=== PATIENT | female | born 1980 | race Caucasian/White ===

== ENCOUNTER → 2017-09-07 09:55 | Outpatient (CLI) | payer OTHER, SELFPAY ==
[2017-09-07 10:55] LABS: Influenza A and B by PCR Rapid Negative (Negative)
== END ==
PROVIDERS: Family Provider Family Medicine; PCP Family Medicine; Visit Provider Physician Assistant
DX: J02.9 Acute pharyngitis, unspecified (principal); J06.9 Acute upper respiratory infection, unspecified
CPT/HCPCS: 87400

== ENCOUNTER → 2017-11-05 12:18 | Outpatient (CLI) | payer OTHER, SELFPAY ==
[2017-11-05 13:26] LABS: TSH w/ Reflex to FT4 5.04 uIU/mL (0.47-4.68)
[2017-11-05 19:47] LABS: Free T4, Direct Thyroxine 0.67 ng/dL (0.78-2.19)
== END ==
PROVIDERS: Family Provider Family Medicine; PCP Family Medicine; Visit Provider Family Medicine
DX: E03.9 Hypothyroidism, unspecified (principal)
CPT/HCPCS: 36415; 84439; 84443

== ENCOUNTER → 2018-03-17 12:40 | Outpatient (CLI) | payer OTHER, SELFPAY ==
--- NOTE | 2018-03-17 12:41 | DI.MG.S_ITS ---
BILATERAL DIGITAL DIAGNOSTIC MAMMOGRAM 3D/2D: 03/17/2018 CLINICAL: Right breast pain. Baseline exam. No prior exams were available for comparison. The tissue of both breasts is extremely dense, which lowers the sensitivity of mammography. There are a grouped punctate calcifications in the left breast central to the nipple middle depth. No other significant masses, calcifications, or other findings are seen in either breast. IMPRESSION: INCOMPLETE: NEEDS ADDITIONAL IMAGING EVALUATION The grouped punctate calcifications in the left breast are probably benign. A follow-up mammogram in 6 months is recommended. There is no mammographic abnormality seen in the right breast to correspond with the pain, however, targeted ultrasound of the right breast is recommended and will be performed immediately following this exam. This exam was interpreted at Station ID: [id number]. NOTE: For mammograms, a report in lay terms will be sent to the patient. Approximately 15% of breast malignancies will not be visualized mammographically. In the management of a palpable breast mass, a negative mammogram must not discourage biopsy of a clinically suspicious lesion. Electronically Signed By: Faina Salazar M.D. lk/:03/17/2018 13:26:12 letter sent: Additional Imaging Needed ACR BI-RADS Category 0: Incomplete 3340F
--- NOTE | 2018-03-17 12:41 | DI.US.S_ITS ---
ULTRASOUND OF RIGHT BREAST: 03/17/2018 CLINICAL: Focal right breast pain. Comparison is made to exam dated: 03/17/2018 [facility]. Real-time ultrasound of the right breast was performed on the areas of interest. Vogt scale images of the real-time examination were reviewed. IMPRESSION: NEGATIVE There is no sonographic evidence of malignancy. There is no mammographic or sonographic abnormality seen in the right breast to correspond with the pain, however, clinical followup is recommended. A 4 year screening mammogram is recommended. This exam was interpreted at Station ID: [id number]. Electronically Signed By: Faina Salazar M.D. lk/:03/17/2018 16:35:26 letter sent: Clinical Evaluation Ultrasound BI-RADS: 1 Negative
== END ==
PROVIDERS: Family Provider Family Medicine; PCP Family Medicine; Visit Provider Registered Nurse
DX: R92.8 Other abnormal and inconclusive findings on diagnostic imaging of breast (principal); N64.4 Mastodynia
CPT/HCPCS: 76642; 77066; G0279

== ENCOUNTER → 2018-06-30 13:09 | Outpatient (CLI) | payer OTHER, SELFPAY ==
[2018-06-30 17:25] LABS: TSH w/ Reflex to FT4 3.32 uIU/mL (0.47-4.68)
== END ==
PROVIDERS: Visit Provider Registered Nurse
DX: E03.9 Hypothyroidism, unspecified (principal)
CPT/HCPCS: 36415; 84443

== ENCOUNTER → 2019-03-20 14:33 | Outpatient (CLI) | payer OTHER, SELFPAY | DX: Z23 Encounter for immunization (principal) | CPT/HCPCS: 90471; 90686 ==

== ENCOUNTER → 2020-03-13 13:11 | Outpatient (CLI) | payer OTHER, SELFPAY | PROVIDERS: Referring Provider Internal Medicine; Visit Provider Internal Medicine | DX: Z23 Encounter for immunization (principal) | CPT/HCPCS: 90471; 90686 ==

== ENCOUNTER → 2020-04-19 08:52 | Outpatient (CLI) | payer OTHER, SELFPAY ==
[2020-04-19] MEDS: COVID-19 VACC(MODERNA-1)/PF 100 MCG/0.5 ML VIAL IM (08:57)
== END ==
PROVIDERS: Visit Provider Internal Medicine
DX: Z23 Encounter for immunization (principal)
CPT/HCPCS: 0011A; 91301

== ENCOUNTER → 2020-05-08 07:28 | Outpatient (CLI) | payer OTHER, SELFPAY ==
[2020-05-08 08:20] LABS: Add Manual Diff / Slide Review NO; Basophils Absolute Auto 0 /uL (0-100); Basophils Percent Auto 0.6 % (0-2); Eosinophils Absolute Auto 200 /uL (0-450); Eosinophils Percent Auto 2.6 % (2-4); Hematocrit 35.9 % (36-46); Hemoglobin 12.5 g/dL (12.0-16.0); Lymphocytes Absolute Auto 2600 /uL (1100-4500); Lymphocytes Percent Auto 37.5 % (25-40); Mean Corpuscular HGB Conc 34.7 % (30-36); Mean Corpuscular Hemoglobin 30.9 PG (26-34); Mean Corpuscular Volume 88.9 fL (80-100); Monocytes Absolute Auto 500 /uL (0-900); Monocytes Percent Auto 6.7 % (3-14); Neutrophils Absolute Auto 3600 /uL (1500-7000); Neutrophils Percent Auto 52.6 % (50-75); Platelet Count 277 X10^3/uL (150-400); Red Blood Cell Count 4.04 X10^6/uL (4.0-5.2); Red Cell Distribution Width 12.7 % (11.6-14.8); White Blood Cell Count 6.9 X10^3/uL (4.5-11.0)
[2020-05-08 08:22] LABS: Alanine Aminotransferase 8 IU/L (<35); Albumin 4.7 g/dL (3.5-5.0); Albumin Globulin Ratio 1.6 (1.0-2.8); Alkaline Phosphatase 45 U/L (38-126); Aspartate Aminotransferase 20 IU/L (14-36); BUN Creatinine Ratio 22.7 (6-22); Bilirubin Total 0.2 mg/dL (0.2-1.3); Blood Urea Nitrogen 17 mg/dL (7-17); Carbon Dioxide 26 mmol/L (22-32); Chloride 104 mmol/L (98-107); Cholesterol 229 mg/dL (140-199); Estimated Glomerular Filt Rate > 60.0 mL/min (>60); Glucose 95 mg/dL (70-100); HDL Cholesterol 58 mg/dL (40-60); HEMOLYSIS < 15 (0-50); LDL Cholesterol Calculated 154 mg/dL (<100); Potassium 3.9 mmol/L (3.4-5.1); Sodium 138 mmol/L (137-145); Total Protein 7.7 g/dL (6.3-8.2); Triglycerides 85 mg/dL (35-150)
[2020-05-08 09:22] LABS: Thyroid Stimulating Hormone 9.88 uIU/mL (0.47-4.68)
== END ==
PROVIDERS: PCP Registered Nurse; Referring Provider Registered Nurse; Visit Provider Registered Nurse
DX: Z00.00 Encounter for general adult medical examination without abnormal findings (principal); E03.9 Hypothyroidism, unspecified
CPT/HCPCS: 36415; 80053; 80061; 84439; 84443; 85025

== ENCOUNTER → 2020-05-16 08:57 | Outpatient (CLI) | payer OTHER, SELFPAY ==
[2020-05-16] MEDS: COVID-19 VACC #2, MRNA(MOD) 100 MCG/0.5 ML VIAL IM (09:01)
== END ==
PROVIDERS: PCP Registered Nurse; Visit Provider Internal Medicine
DX: Z23 Encounter for immunization (principal)
CPT/HCPCS: 0012A; 91301

== ENCOUNTER → 2020-05-29 08:34 | Outpatient (CLI) | payer OTHER, SELFPAY ==
--- NOTE | 2020-05-29 08:36 | DI.US.S_ITS ---
LIMITED ULTRASOUND OF RIGHT BREAST AND AXILLA: 05/29/2020 CLINICAL: Focal right breast pain. intermitten pain . prior done same area 2018. Comparison is made to exams dated: 05/29/2020 mammogram, 03/17/2018 ultrasound, and 03/17/2018 mammogram - [facility]. Real-time ultrasound of the right breast 6-9 o'clock, and axilla regions was performed. Vogt scale images of the real-time examination were reviewed. No significant abnormalities were seen sonographically in the right breast or the right axilla. IMPRESSION: NEGATIVE There is no sonographic evidence of malignancy in the region of pain in the right breast. Exam findings were conveyed to the patient. Patient is advised to monitor for significant change. Clinical follow-up as needed. A follow-up left mammogram in 6 months is recommended to demonstrate stability of the calcifications seen on mammogram. 11/28/2020 This exam was interpreted at Station ID: [id number]. Electronically Signed By: Cristobal Fan M.D. slc/:05/29/2020 11:07:36 letter sent: Clinical Evaluation Ultrasound BI-RADS: 1 Negative
--- NOTE | 2020-05-29 08:36 | DI.MG.S_ITS ---
BILATERAL DIGITAL DIAGNOSTIC MAMMOGRAM 3D/2D: 05/29/2020 CLINICAL: Mastodynia. Comparison is made to exams dated: 03/17/2018 ultrasound and 03/17/2018 mammogram - [facility]. The tissue of both breasts is extremely dense, which lowers the sensitivity of mammography. There is a mass in the left breast seen on the craniocaudal view only. There also are grouped fine punctate calcifications in the left breast central to the nipple anterior depth. These are seen in additional views. These are increased in number compared to 2018. No other significant masses, calcifications, or other findings are seen in either breast. IMPRESSION: PROBABLY BENIGN 1) The grouped fine and punctate calcifications in the left breast central to the nipple anterior depth which are increased in number. Some of these calcifications demonstrate layering on the LM view and resemble milk of calcium and are probably benign. -A follow-up mammogram in 6 months is recommended. 2) No mammographic finding in the region of pain in the lateral right breast. -A targeted ultrasound is recommended and will immediately follow. This exam was interpreted at Station ID: [id number]. NOTE: For mammograms, a report in lay terms will be sent to the patient. Approximately 15% of breast malignancies will not be visualized mammographically. In the management of a palpable breast mass, a negative mammogram must not discourage biopsy of a clinically suspicious lesion. Electronically Signed By: Cristobal Fan M.D. [facility]/:05/29/2020 11:04:08 ACR BI-RADS Category 3: Probably benign 3343F
== END ==
PROVIDERS: PCP Registered Nurse; Referring Provider Registered Nurse; Visit Provider Registered Nurse
DX: R92.1 Mammographic calcification found on diagnostic imaging of breast (principal); N64.4 Mastodynia
CPT/HCPCS: 76642; 77066; G0279

== ENCOUNTER → 2020-07-03 07:21 | Outpatient (CLI) | payer OTHER, SELFPAY ==
[2020-07-03 09:18] LABS: Thyroid Stimulating Hormone 10.2 uIU/mL (0.47-4.68)
== END ==
PROVIDERS: PCP Registered Nurse; Referring Provider Registered Nurse; Visit Provider Registered Nurse
DX: E03.9 Hypothyroidism, unspecified (principal)
CPT/HCPCS: 36415; 84443

== ENCOUNTER → 2020-09-10 07:32 | Outpatient (CLI) | payer OTHER, SELFPAY ==
[2020-09-10 09:00] LABS: Thyroid Stimulating Hormone 8.42 uIU/mL (0.47-4.68)
== END ==
PROVIDERS: PCP Registered Nurse; Referring Provider Registered Nurse; Visit Provider Registered Nurse
DX: E03.9 Hypothyroidism, unspecified (principal)
CPT/HCPCS: 36415; 84443

== ENCOUNTER → 2020-10-29 11:28 | Outpatient (CLI) | payer OTHER, SELFPAY ==
[2020-10-29 13:05] LABS: COVID19 -Nasal RAPID Negative (Negative)
== END ==
PROVIDERS: PCP Registered Nurse; Visit Provider Physician Assistant
DX: R05 Cough (principal); R51.9 Headache, unspecified; Z20.822 Contact with and (suspected) exposure to COVID-19
CPT/HCPCS: 87635

== ENCOUNTER → 2020-11-20 07:37 | Outpatient (CLI) | payer OTHER, SELFPAY ==
[2020-11-20 09:14] LABS: Thyroid Stimulating Hormone 6.38 uIU/mL (0.47-4.68)
== END ==
PROVIDERS: PCP Registered Nurse; Referring Provider Registered Nurse; Visit Provider Registered Nurse
DX: E03.9 Hypothyroidism, unspecified (principal)
CPT/HCPCS: 36415; 84443

== ENCOUNTER → 2021-01-16 15:12 | Outpatient (CLI) | payer OTHER, SELFPAY ==
[2021-01-16 16:26] LABS: Thyroid Stimulating Hormone 0.385 uIU/mL (0.47-4.68)
== END ==
PROVIDERS: PCP Registered Nurse; Referring Provider Registered Nurse; Visit Provider Registered Nurse
DX: E03.9 Hypothyroidism, unspecified (principal)
CPT/HCPCS: 36415; 84443

== ENCOUNTER → 2021-04-22 07:40 | Outpatient (CLI) | payer OTHER, SELFPAY ==
[2021-04-22 09:54] LABS: Thyroid Stimulating Hormone 7.27 uIU/mL (0.47-4.68)
== END ==
PROVIDERS: PCP Registered Nurse; Referring Provider Registered Nurse; Visit Provider Registered Nurse
DX: E03.9 Hypothyroidism, unspecified (principal)
CPT/HCPCS: 36415; 84443

== ENCOUNTER → 2021-05-17 09:19 | Outpatient (CLI) | payer OTHER, SELFPAY ==
--- NOTE | 2021-05-17 | DI.MG.S_ITS ---
BILATERAL DIGITAL DIAGNOSTIC MAMMOGRAM 3D/2D: 05/17/2021 CLINICAL: Short term follow up of the left breast, due for bilateral imaging. Comparison is made to exams dated: 05/29/2020 ultrasound, 05/29/2020 mammogram, 03/17/2018 ultrasound, and 03/17/2018 mammogram - [facility]. The tissue of both breasts is extremely dense, which lowers the sensitivity of mammography. There are stable grouped fine calcifications in the left breast central to the nipple middle depth. These are seen in additional views. No other significant masses, calcifications, or other findings are seen in either breast. IMPRESSION: BENIGN The stable grouped fine calcifications in the left breast most likely are milk of calcium and are benign. There is no mammographic evidence of malignancy. Return to annual mammogram screening schedule is recommended. This exam was interpreted at Station ID: [id number]. NOTE: For mammograms, a report in lay terms will be sent to the patient. Approximately 15% of breast malignancies will not be visualized mammographically. In the management of a palpable breast mass, a negative mammogram must not discourage biopsy of a clinically suspicious lesion. Electronically Signed By: London Ayala acr/:05/17/2021 10:07:15 letter sent: Normal Exam ACR BI-RADS Category 2: Benign Finding(s) 3342F
== END ==
PROVIDERS: PCP Registered Nurse; Referring Provider Registered Nurse; Visit Provider Registered Nurse
DX: R92.8 Other abnormal and inconclusive findings on diagnostic imaging of breast (principal); R92.1 Mammographic calcification found on diagnostic imaging of breast
CPT/HCPCS: 77066; G0279

== ENCOUNTER → 2021-07-29 07:26 | Outpatient (CLI) | payer OTHER, SELFPAY ==
[2021-07-29 09:22] LABS: TSH w/ Reflex to FT4 5.36 uIU/mL (0.47-4.68)
[2021-07-29 09:56] LABS: Free T4, Direct Thyroxine 1.24 ng/dL (0.78-2.19)
== END ==
PROVIDERS: PCP Registered Nurse; Referring Provider Registered Nurse; Visit Provider Registered Nurse
DX: E03.9 Hypothyroidism, unspecified (principal)
CPT/HCPCS: 36415; 84439; 84443

== ENCOUNTER → 2021-11-14 11:21 | Outpatient (CLI) | payer OTHER, SELFPAY ==
[2021-11-14 14:06] LABS: Free T4, Direct Thyroxine 1.21 ng/dL (0.78-2.19)
[2021-11-14 14:19] LABS: Thyroid Stimulating Hormone 2.31 uIU/mL (0.47-4.68)
== END ==
PROVIDERS: PCP Nurse Practitioner; Referring Provider Nurse Practitioner; Visit Provider Nurse Practitioner
DX: E03.9 Hypothyroidism, unspecified (principal)
CPT/HCPCS: 36415; 84439; 84443; 84481

== ENCOUNTER 2022-01-01 20:23 | Emergency (ER) | payer OTHER, SELFPAY ==
[2022-01-01] VITALS (8 sets, daily range): BP systolic 92–149; BP diastolic 56–89; PULSE 59–72; RESP 13–20; TEMP 36.7; O2SAT 97–99
--- NOTE | 2022-01-01 20:30 | DI.RAD.S_ITS ---
PROCEDURE: XR CHEST 1V INDICATIONS: chest pain TECHNIQUE: One view of the chest was acquired. COMPARISON: None. FINDINGS: Surgical changes and devices: None. Lungs and pleura: Lungs are clear. No pleural effusions or pneumothorax. Mediastinum: Mediastinal contours appear normal. Heart size is normal. Bones and chest wall: No suspicious bony lesions. Overlying soft tissues appear unremarkable. IMPRESSION: 1. No acute cardiopulmonary disease. Dictated by: Klaus Pascual M.D. on 01/01/2022 at 21:28 Approved by: Klaus Pascual M.D. on 01/01/2022 at 21:29
[2022-01-01 20:49] LABS: Add Manual Diff / Slide Review NO; Basophils Absolute Auto 100 /uL (0-100); Eosinophils Absolute Auto 100 /uL (0-450); Eosinophils Percent Auto 1.4 % (2-4); Hemoglobin 13.7 g/dL (12.0-16.0); Lymphocytes Absolute Auto 2000 /uL (1100-4500); Lymphocytes Percent Auto 28.9 % (25-40); Mean Corpuscular HGB Conc 35.1 % (30-36); Mean Corpuscular Hemoglobin 31.1 PG (26-34); Mean Corpuscular Volume 88.5 fL (80-100); Monocytes Absolute Auto 500 /uL (0-900); Monocytes Percent Auto 6.9 % (3-14); Neutrophils Absolute Auto 4300 /uL (1500-7000); Neutrophils Percent Auto 60.8 % (50-75); Platelet Count 351 X10^3/uL (150-400); Red Cell Distribution Width 13.4 % (11.6-14.8); White Blood Cell Count 7.1 X10^3/uL (4.5-11.0)
[2022-01-01 20:58] LABS: D Dimer 297 ng/ml (<500)
[2022-01-01 21:02] LABS: Alanine Aminotransferase 12 IU/L (<35); Albumin 4.7 g/dL (3.5-5.0); Albumin Globulin Ratio 1.3 (1.0-2.8); Alkaline Phosphatase 43 U/L (38-126); Aspartate Aminotransferase 20 IU/L (14-36); BUN Creatinine Ratio 17.5 (6-22); Bilirubin Total 0.3 mg/dL (0.2-1.3); Blood Urea Nitrogen 14 mg/dL (7-17); Calcium 9.3 mg/dL (8.4-10.2); Carbon Dioxide 27 mmol/L (22-32); Chloride 104 mmol/L (98-107); Creatine Kinase 46 U/L (30-135); Estimated Glomerular Filt Rate > 60 mL/min (>60); Globulin 3.5 g/dL (1.7-4.1); Glucose 98 mg/dL (70-100); HEMOLYSIS < 15 (0-50); Lipase 102 U/L (23-300); Magnesium 2.2 mg/dL (1.6-2.3); Potassium 3.8 mmol/L (3.4-5.1); Sodium 141 mmol/L (137-145); Total Protein 8.2 g/dL (6.3-8.2)
--- NOTE | 2022-01-01 21:03 | ED_ITS ---
HPI - Chest Pain General Chief Complaint: Chest Pain Stated Complaint: Chest discomfort Time Seen by Provider: 01/01/22 20:53 Source: patient Mode of arrival: Ambulatory Limitations: no limitations History of Present Illness HPI narrative: This is a 32-year-old female with history of hypothyroidism, patient states that she started having chest tightness particularly in the right with some shortness of breath and dizziness and mild nausea yesterday about 5:00 p.m. was up and down in intensity lasted about 2200 and then resolved. Came back this evening at about 1800 patient feels the same. No diaphoresis. No syncope. No vomiting. Does not radiate to her back but does radiate a little to her neck no active chest pain currently. No abdominal pain. No issues with bowel movements or urination. No swelling in extremities. Has driven a [place] recently but no other travel. Patient takes Synthroid for hypothyroidism, prior ovary removed, no known drug allergies. Occasional tobacco, occasional alcohol, no illicit. Her mother had a clot that was unprovoked in the past and is currently on blood thinners. Had a paternal grandmother who at age 54. Sibling is healthy. Patient does not have any known cardiac, pulmonary embolic history. Related Data Previous Rx's Medication Instructions Recorded ibuprofen 600 mg tablet 600 mg PO Q6HP PRN #60 tabs 02/04/16 acyclovir 800 mg tablet 800 mg PO BID PRN cold sores 90 05/03/20 days #90 tabs nystatin 100,000 unit/gram topical 1 applic topical TID PRN rash #30 05/03/20 cream grams levothyroxine 88 mcg tablet 88 mcg PO DAILY #90 tabs 11/14/21 Allergies Allergy/AdvReac Type Severity Reaction Status Date / Time No Known Drug Allergies Allergy Unknown Unverified 09/03/21 08:33 Review of Systems Review of Systems ROS Unobtainable: All systems reviewed & are unremarkable except as noted in HPI and below Patient History Medical History Benign teratoma of ovary Depression Dermoid cyst of both ovaries Hypothyroidism Irregular menstrual cycle Skin rash Vaginal delivery (2011) Vaginal delivery (2013) Surgical History History of ovarian cystectomy (02/02/16) History of right salpingo-oophorectomy (02/02/16) History of tonsillectomy Status post laparotomy (02/02/16) Family History Mother Age: 68 Esophageal cancer Social History Smoking Status: Never smoker second hand exposure: No alcohol intake: current (2x/week) substance use type: does not use Smoking Status: Never smoker Exam Narrative Exam Narrative: GENERAL: Alert and oriented x three, female in mild distress. HEENT: Head normocephalic, atraumatic, EOMI, pupils reactive, face symmetric, moist mucous membranes NECK: Supple, full range of motion CARDIOVASCULAR: Regular rate and rhythm without murmurs, rubs or gallops. No JV D. No swelling bilateral lower extremities. No reproducible chest pain on exam. RESPIRATORY: Breath sounds equal bilaterally, no wheezes rales or rhonchi. ABDOMEN: Soft, nontender. Normoactive bowel sounds all 4 quadrants. No guarding or rebound, rigidity, no mass : No CVA tenderness EXTREMITIES: Normal range of motion, no clubbing or edema. Neurovascularly intact NEUROLOGICAL: Cranial nerves II through XII grossly intact. Moving all extremities SKIN: Warm, dry, no petechiae, no rashes or lesions. Initial Vital Signs Initial Vital Signs: Vital Signs Temperature 98.1 F 01/01/22 20:28 Pulse Rate 72 01/01/22 20:28 Respiratory Rate 18 01/01/22 20:28 Blood Pressure 148/82 H 01/01/22 20:28 Pulse Oximetry 97 01/01/22 20:28 Oxygen Delivery Method 01/01/22 20:28 Scores HEART Score Heart Score history: Slightly Suspicious Heart Score EKG: Normal Heart Score Age: < 45 years old Heart Score risk factors: No known risk factors Heart Score troponin: < or = to normal limit Heart Score Total: 0 PERC Score Age greater than or equal to 50 years: No Heart rate greater than or equal to 100 bpm: No Room Air O2 Sat less than 95%: No Unilateral leg swelling: No Recent trauma or surgery: No Hemoptysis: No Prior PE or DVT: No Hormone Use: No Total PERC Score: 0 Course Orders Ordered: ED Orders 01/01/22 20:30 XR chest 1V Stat 01/01/22 20:33 Complete Blood Count AUTO DIFF Stat Comprehensive Metabolic Panel Stat DD [D Dimer] Stat Lipase Stat Magnesium Stat Troponin & CK Cardiac Panel Stat 01/01/22 20:41 EKG-12 Lead Stat 01/01/22 20:57 BNP [NT-proBNP (BNP-Adult 18+)] Stat 01/01/22 21:26 COVID19 -Nasal RAPID/Pre-Proc Stat 01/01/22 22:13 CT angio chest PE protocol Stat 01/01/22 23:00 Trop I [Troponin I] Stat 01/01/22 23:16 EKG-12 Lead Routine Vital Signs Vital signs: Vital Signs - 8 hr 01/01/22 21:30 01/01/22 21:30 01/01/22 22:00 Pulse Rate 59 L Respiratory Rate 19 Blood Pressure 109/71 92/56 L Pulse Oximetry 97 01/01/22 22:00 01/01/22 22:30 01/01/22 22:30 Pulse Rate 62 61 Respiratory Rate 14 20 Blood Pressure 119/76 Pulse Oximetry 97 98 01/01/22 23:00 Pulse Rate 62 Respiratory Rate 18 Blood Pressure Pulse Oximetry 98 MDM - Chest Pain Lab Data Result diagrams: 01/01/22 20:33 01/01/22 20:33 Labs: Lab Results 01/01/22 01/01/22 01/01/22 Range/Units 20:33 20:33 20:33 WBC 7.1 (4.5-11.0) X10^3/uL RBC 4.40 (4.0-5.2) X10^6/uL Hgb 13.7 (12.0-16.0) g/dL Hct 39.0 (36-46) % MCV 88.5 (80-100) fL MCH 31.1 (26-34) PG MCHC 35.1 (30-36) % RDW 13.4 (11.6-14.8) % Plt Count 351 (150-400) X10^3/uL Neut % (Auto) 60.8 (50-75) % Lymph % (Auto) 28.9 (25-40) % [place] % (Auto) 6.9 (3-14) % Eos % (Auto) 1.4 L (2-4) % Baso % (Auto) 2.0 (0-2) % Neut # (Auto) 4300 (6452-6612) /uL Lymph # (Auto) 2000 (7057-2497) /uL [place] # (Auto) 500 (0-900) /uL Eos # (Auto) 100 (0-450) /uL Baso # (Auto) 100 (0-100) /uL D-Dimer 297 (<500) ng/ml Sodium 141 (137-145) mmol/L Potassium 3.8 (3.4-5.1) mmol/L Chloride 104 (98-107) mmol/L Carbon Dioxide 27 (22-32) mmol/L BUN 14 (7-17) mg/dL Creatinine 0.80 (0.52-1.04) mg/dL Estimated GFR > 60 (>60) mL/min BUN/Creatinine Ratio 17.5 (6-22) Glucose 98 (70-100) mg/dL Calcium 9.3 (8.4-10.2) mg/dL Magnesium 2.2 (1.6-2.3) mg/dL Total Bilirubin 0.3 (0.2-1.3) mg/dL AST 20 (14-36) IU/L ALT 12 (<35) IU/L Alkaline Phosphatase 43 (38-126) U/L Total Creatine Kinase 46 (30-135) U/L CK-MB (CK-2) TNP CK-MB (CK-2) Rel Index TNP Troponin I < 0.012 (0.01-0.034) ng/mL NT-Pro-B Natriuret Pep (<125) pg/mL Total Protein 8.2 (6.3-8.2) g/dL Albumin 4.7 (3.5-5.0) g/dL Globulin 3.5 (1.7-4.1) g/dL Albumin/Globulin Ratio 1.3 (1.0-2.8) Lipase 102 (23-300) U/L SARS-CoV-2 (PCR) (Negative) 01/01/22 01/01/22 01/01/22 Range/Units 20:57 21:26 23:00 WBC (4.5-11.0) X10^3/uL RBC (4.0-5.2) X10^6/uL Hgb (12.0-16.0) g/dL Hct (36-46) % MCV (80-100) fL MCH (26-34) PG MCHC (30-36) % RDW (11.6-14.8) % Plt Count (150-400) X10^3/uL Neut % (Auto) (50-75) % Lymph % (Auto) (25-40) % [place] % (Auto) (3-14) % Eos % (Auto) (2-4) % Baso % (Auto) (0-2) % Neut # (Auto) (1688-7814) /uL Lymph # (Auto) (2585-7658) /uL [place] # (Auto) (0-900) /uL Eos # (Auto) (0-450) /uL Baso # (Auto) (0-100) /uL D-Dimer (<500) ng/ml Sodium (137-145) mmol/L Potassium (3.4-5.1) mmol/L Chloride (98-107) mmol/L Carbon Dioxide (22-32) mmol/L BUN (7-17) mg/dL Creatinine (0.52-1.04) mg/dL Estimated GFR (>60) mL/min BUN/Creatinine Ratio (6-22) Glucose (70-100) mg/dL Calcium (8.4-10.2) mg/dL Magnesium (1.6-2.3) mg/dL Total Bilirubin (0.2-1.3) mg/dL AST (14-36) IU/L ALT (<35) IU/L Alkaline Phosphatase (38-126) U/L Total Creatine Kinase (30-135) U/L CK-MB (CK-2) CK-MB (CK-2) Rel Index Troponin I < 0.012 (0.01-0.034) ng/mL NT-Pro-B Natriuret Pep 42 (<125) pg/mL Total Protein (6.3-8.2) g/dL Albumin (3.5-5.0) g/dL Globulin (1.7-4.1) g/dL Albumin/Globulin Ratio (1.0-2.8) Lipase (23-300) U/L SARS-CoV-2 (PCR) Negative (Negative) Imaging Data Chest x-ray: Radiologist's Impression: [address] [address] XRay Report Signed Patient: Stacy Ernandez MR#: [id number] : 1980 Acct:[id number] Age/Sex: 41 / F Date of Service: 01/01/22 Loc: ED Accession Number: [id number] ?? Procedure: XR chest 1V Ordering Provider: Viri Munoz D.O. PROCEDURE:? XR CHEST 1V ? INDICATIONS:? chest pain ? TECHNIQUE:? One view of the chest was acquired.? ? COMPARISON:? None. ? FINDINGS:? ? Surgical changes and devices:? None.? ? Lungs and pleura:? Lungs are clear.? No pleural effusions or pneumothorax.? ? Mediastinum:? Mediastinal contours appear normal.? Heart size is normal.? ? Bones and chest wall:? No suspicious bony lesions.? Overlying soft tissues appear unremarkable.? ? IMPRESSION:? ? 1.? No acute cardiopulmonary disease. ? ? ? Dictated by: Klaus Pascual M.D. on 01/01/2022 at 21:28 ? ? Approved by: Klaus Pascual M.D. on 01/01/2022 at 21:29?? CT scan - chest: Radiologist's Impression: Stacy Ernandez?(Pamela)??41??F??1980 ? Allergy/Adv: No Known Drug Allergies (More??) Close Chest CTA (Signed) Klaus Pascual - 01/01/22 Chest X-Ray (Signed) Klaus Pascual - 01/01/22 Mammogram Diagnostic (Signed) London Ayala - 05/17/21 Mammogram Diagnostic (Signed) Call,Cristobal - 05/29/20 Breast Ultrasound (Signed) Call,Cristobal - 05/29/20 Mammogram Diagnostic (Signed) Faina Salazar - 03/17/18 Breast Ultrasound (Signed) Faina Salazar - 03/17/18 Launch?[address] [address] [address] Scan Report Signed Patient: Stacy Ernandez MR#: [id number] : 1980 Acct:[id number] Age/Sex: 41 / F Date of Service: 01/01/22 Loc: ED Accession Number: [id number] ?? Procedure: CT angio chest PE protocol Ordering Provider: Viri Munoz D.O. PROCEDURE:? CT ANGIO CHEST PE PROTOCOL ? INDICATIONS:? right chest pain ? TECHNIQUE:? After the administration of intravenous contrast, 2 mm thick sections acquired from the pulmonary apices to the posterior costophrenic angles.? 3-dimensional maximum intensity projection (MIP) coronal and sagittal reformats were then acquired through the thorax.? For radiation dose reduction, the following was used:? automated exposure control, adjustment of mA and/or kV according to patient size.? ? COMPARISON:? None. ? FINDINGS:? Image quality:? Excellent.? ? Pulmonary arteries:? Pulmonary arteries are normal in size, and demonstrate no intraluminal filling defects to suggest central pulmonary embolism.? ? Lower Neck: No lymphadenopathy by size criteria. Thyroid:? Visualized thyroid appears heterogeneous without a focal dominant nodule. Axillae: No lymphadenopathy by size criteria. Chest Wall:? Unremarkable.? Bones: Visualized osseous structures demonstrate no suspicious lesions. ? Lungs and Airways:? No acute consolidation.? Mild dependent atelectasis is demonstrated bilaterally.? The trachea and central airways are patent. Pleura: No pneumothorax or pleural effusions.? ? Heart: Heart size is normal.? No pericardial effusion. Thoracic Vessels: The thoracic aorta is normal in size.? Mediastinum and Judith: No lymphadenopathy by size criteria. Esophagus: No wall thickening.? There is a small hiatal hernia. ? Abdomen:? Visualized upper abdominal solid organs appear normal in the early arterial phase of enhancement.? ? IMPRESSION:? ? 1. No evidence of pulmonary embolism. ? 2. No acute airspace consolidation.? ? ? Dictated by: Klaus Pascual M.D. on 01/02/2022 at 0:13 ? ? Approved by: Klaus Pascual M.D. on 01/02/2022 at 0:15?? ECG Data Attestation: I personally reviewed and interpreted this ECG as follows: Prior ECG tracings: not available for review Interpretation: Sinus rhythm rate of 60 5p are 134 QRS 76, QTC 397. No acute ST changes appreciated. No priors available. EKG 2. Sinus bradycardia rate of 50 9p are 144 QRS is 76 QTC of 397. No acute ST changes. MDM Narrative Medical decision making narrative: This is a 41-year-old female with no known cardiac risk factors who has right- sided chest pain somewhat atypical features. Patient does have family history of unprovoked pulmonary emboli in a first-degree relative. Patient's chest x- ray, labs and EKG do not show acute change. D-dimer was negative but with family history risks versus benefit was discussed in decision was made for CT angio. This was negative with no other structural changes appreciated. Patient is COVID negative. Chest pain has resolved discussed plan for follow-up and return precautions all questions answered. Discharge Plan Departure Patient Disposition: Home Clinical Impression: Chest pain Instructions: DI for Chest Pain Activity Restrictions/Additional Instructions: Your labs, EKG and imaging today are reassuring. Please follow-up with your physician if her symptoms are persisting. If you continue to have chest, shortness of breath, lightheadedness or passing out, new swelling in her extremities or other new or concerning changes please return. Prescriptions: No Action ibuprofen 600 MG tablet 600 mg PO Q6HP PRNQty: 60 0RF levothyroxine 88 mcg tablet 88 mcg PO DAILY Qty: 90 0RF acyclovir 800 mg tablet 800 mg PO BID PRN (Reason: cold sores) 90 Days Qty: 90 1RF nystatin 100,000 unit/gram cream 1 applic TOP TID PRN (Reason: rash) Qty: 30 2RF Referrals: Viry Lemus ARNP [Primary Care Provider] - Visit Report Forms: Patient Portal/API
[2022-01-01 21:14] LABS: Troponin I < 0.012 ng/mL (0.01-0.034)
[2022-01-01 22:01] LABS: COVID19 -Nasal RAPID Negative (Negative)
--- NOTE | 2022-01-01 22:13 | DI.CT.S_ITS ---
PROCEDURE: CT ANGIO CHEST PE PROTOCOL INDICATIONS: right chest pain TECHNIQUE: After the administration of intravenous contrast, 2 mm thick sections acquired from the pulmonary apices to the posterior costophrenic angles. 3-dimensional maximum intensity projection (MIP) coronal and sagittal reformats were then acquired through the thorax. For radiation dose reduction, the following was used: automated exposure control, adjustment of mA and/or kV according to patient size. COMPARISON: None. FINDINGS: Image quality: Excellent. Pulmonary arteries: Pulmonary arteries are normal in size, and demonstrate no intraluminal filling defects to suggest central pulmonary embolism. Lower Neck: No lymphadenopathy by size criteria. Thyroid: Visualized thyroid appears heterogeneous without a focal dominant nodule. Axillae: No lymphadenopathy by size criteria. Chest Wall: Unremarkable. Bones: Visualized osseous structures demonstrate no suspicious lesions. Lungs and Airways: No acute consolidation. Mild dependent atelectasis is demonstrated bilaterally. The trachea and central airways are patent. Pleura: No pneumothorax or pleural effusions. Heart: Heart size is normal. No pericardial effusion. Thoracic Vessels: The thoracic aorta is normal in size. Mediastinum and Judith: No lymphadenopathy by size criteria. Esophagus: No wall thickening. There is a small hiatal hernia. Abdomen: Visualized upper abdominal solid organs appear normal in the early arterial phase of enhancement. IMPRESSION: 1. No evidence of pulmonary embolism. 2. No acute airspace consolidation. Dictated by: Klaus Pascual M.D. on 01/02/2022 at 0:13 Approved by: Klaus Pascual M.D. on 01/02/2022 at 0:15
[2022-01-01 22:19] LABS: NT-proBNP (BNP-Adult 18+) 42 pg/mL (<125)
[2022-01-01 23:48] LABS: Troponin I < 0.012 ng/mL (0.01-0.034)
== END 2022-01-02 00:50 | disposition home or self-care (01) ==
PROVIDERS: Emergency Provider Emergency Medicine; PCP Nurse Practitioner
DX: R07.9 Chest pain, unspecified (principal); Z20.822 Contact with and (suspected) exposure to COVID-19
CPT/HCPCS: 36415; 71045; 71275; 80053; 82550; 83690; 83735; 83880; 84484; 85025; 85379; 87635; 93005; 99284; C9803; Q9967

== ENCOUNTER → 2022-01-22 07:23 | Outpatient (CLI) | payer OTHER, SELFPAY ==
[2022-01-22 11:41] LABS: Thyroid Stimulating Hormone 3.68 uIU/mL (0.47-4.68)
== END ==
PROVIDERS: PCP Nurse Practitioner; Referring Provider Nurse Practitioner; Visit Provider Nurse Practitioner
DX: E03.9 Hypothyroidism, unspecified (principal)
CPT/HCPCS: 36415; 84443

== ENCOUNTER → 2022-07-17 15:15 | Outpatient (CLI) | payer BC, SELFPAY ==
--- NOTE | 2022-07-17 15:18 | DI.MG.S_ITS ---
BILATERAL DIGITAL SCREENING MAMMOGRAM 3D/2D WITH CAD: 07/17/2022 CLINICAL: Routine screening. Comparison is made to exams dated: 05/17/2021 mammogram, 05/29/2020 mammogram, and 03/17/2018 mammogram - [facility]. Both breasts are heterogeneously dense, which may obscure small masses (category c / 51-75% glandular tissue). Current study was also evaluated with a Computer Aided Detection (CAD) system. No significant masses, calcifications, or other findings are seen in either breast. There has been no significant interval change. IMPRESSION: NEGATIVE There is no mammographic evidence of malignancy. A 1 year screening mammogram is recommended. Based on the Tyrer Cuzick model (a risk assessment model) the patient's lifetime risk is 15.0% and her 10 year risk is 1.9%. According to the ACR, ACS, and NCCN guidelines, an annual breast MRI exam along with mammogram is recommended if the patient's lifetime risk is 20% or greater. This exam was interpreted at Station ID: [id number]. NOTE: For mammograms, a report in lay terms will be sent to the patient. Approximately 15% of breast malignancies will not be visualized mammographically. In the management of a palpable breast mass, a negative mammogram must not discourage biopsy of a clinically suspicious lesion. Electronically Signed By: Cristobal orr/selena:07/18/2022 09:08:06 letter sent: Normal Exam ACR BI-RADS Category 1: Negative 3341F
== END ==
PROVIDERS: PCP Nurse Practitioner; Referring Provider Nurse Practitioner; Visit Provider Nurse Practitioner
DX: Z12.31 Encounter for screening mammogram for malignant neoplasm of breast (principal); E03.9 Hypothyroidism, unspecified
CPT/HCPCS: 36415; 77063; 77067; 84443

== ENCOUNTER 2023-05-20 05:57 | Emergency (ER) | payer BC, SELFPAY ==
--- NOTE | 2023-05-20 06:05 | ED.WOUNDLAC ---
HPI - Wound/Laceration General Chief Complaint: Extremity Problem,Nontraumatic Stated Complaint: infected rt thumb Time Seen by Provider: 05/20/23 05:58 History of Present Illness HPI narrative: Patient presents for right thumb pain and swelling for the last 2-3 days. Using warm saltwater soaks with no improvement. Seems to be getting worse in his concern for infection. Denies trauma. Related Data Previous Rx's Medication Instructions Recorded ibuprofen 600 mg tablet 600 mg PO Q6HP PRN #60 tabs 02/04/16 nystatin 100,000 unit/gram topical 1 applic topical TID PRN rash #30 05/03/20 cream grams acyclovir 800 mg tablet 800 mg PO BID PRN cold sores 90 07/21/22 days #90 tabs levothyroxine 88 mcg tablet 88 mcg PO DAILY #90 tabs 07/21/22 amoxicillin 875 mg-potassium 1 tab PO Q12H #14 tabs 05/20/23 clavulanate 125 mg tablet Allergies Allergy/AdvReac Type Severity Reaction Status Date / Time No Known Drug Allergies Allergy Unknown Unverified 06/06/22 11:06 Patient History Medical History Benign teratoma of ovary Depression Dermoid cyst of both ovaries Hypothyroidism Irregular menstrual cycle Skin rash Vaginal delivery (2011) Vaginal delivery (2013) Surgical History History of ovarian cystectomy (02/02/16) History of right salpingo-oophorectomy (02/02/16) History of tonsillectomy Status post laparotomy (02/02/16) Family History Mother Age: 69 Esophageal cancer Social History Smoking Status: Never smoker second hand exposure: No alcohol intake: current (2x/week) substance use type: does not use Smoking Status: Never smoker Exam Initial Vital Signs Initial Vital Signs: Vital Signs Temperature 98.2 F 05/20/23 06:07 Pulse Rate 87 05/20/23 06:07 Respiratory Rate 16 05/20/23 06:07 Blood Pressure 135/98 H 05/20/23 06:07 Pulse Oximetry 97 05/20/23 06:07 Oxygen Delivery Method Room Air 05/20/23 06:07 Const Other: Awake, alert, no acute distress Skin Other: Paronychia base of right thumb. No felon, no Kanavel signs, full ROM Procedures Abscess I/D I&D #1: Site: hand Side (if applicable): right Local Anesthetic: lidocaine 1% Amount of anesthesia used (mL): 3 Technique: incised with #11 blade Nerve Block Nerve Block 1: Local Anesthetic: lidocaine 1% Amount of anesthesia used (mL): 3 Nerve Blocks: digital Procedure Successful: Yes Patient Tolerated Procedure: Well and No complications Course Orders Ordered: Discontinued Medications Lidocaine HCl (Lidocaine 1% 20 Ml) 20 ml INJ INTRA-OP ONE Stop: 05/20/23 06:05 Last Admin: 05/20/23 06:09 Dose: 20 ml Vital Signs Vital signs: Vital Signs - 8 hr 05/20/23 06:07 Temperature 98.2 F Pulse Rate 87 Respiratory Rate 16 Blood Pressure 135/98 H Pulse Oximetry 97 Oxygen Delivery Method Room Air MDM - Wound/Laceration MDM Narrative Medical decision making narrative: Paronychia of right thumb. Digital block performed per procedure note, small neck with 11 blade made with expression of small amount of purulent material from the thumb. Bandage applied afterwards. Patient counseled to continue to use warm saltwater soaks, she may apply bacitracin ointment as needed. A just in case antibiotic prescription was sent to pharmacy of choice, however it was counseled that with drainage of the paronychia her symptoms should improve significantly Discharge Plan Departure Patient Disposition: Home Clinical Impression: Paronychia Instructions: DI for Paronychia Activity Restrictions/Additional Instructions: THE AUGMENTIN PRESCRIBED A ?JUST IN CASE? ANTIBIOTIC PRESCRIPTION IF IT DOES NOT GET BETTER WITHIN THE NEXT 48 HOURS. CONTINUE TO USE WARM WATER SOAKS, ELEVATE THE FINGER, KEEP IT IN A CLEAN BANDAGE WHEN WORKING OR USING YOUR HANDS. Prescriptions: New amoxicillin-pot clavulanate 875-125 mg tablet 1 tab PO Q12H Qty: 14 0RF No Action ibuprofen 600 MG tablet 600 mg PO Q6HP PRNQty: 60 0RF acyclovir 800 mg tablet 800 mg PO BID PRN (Reason: cold sores) 90 Days Qty: 90 1RF levothyroxine 88 mcg tablet 88 mcg PO DAILY Qty: 90 1RF nystatin 100,000 unit/gram cream 1 applic TOP TID PRN (Reason: rash) Qty: 30 2RF Referrals: Viry Lemus ARNP [Primary Care Provider] - Stand Alone Forms: Patient Portal/API
[2023-05-20 06:07] VITALS: BP 135/98; PULSE 87; RESP 16; TEMP 36.8; O2SAT 97; BMI 56.4
[2023-05-20] MEDS: LIDOCAINE 1% 20 ML INJ (06:09)
[2023-05-20 06:35] VITALS: BP 143/93; PULSE 83; RESP 16; TEMP 36.8; O2SAT 97
== END 2023-05-20 06:35 | disposition home or self-care (01) ==
PROVIDERS: Emergency Provider Emergency Medicine; PCP Nurse Practitioner
DX: L03.011 Cellulitis of right finger (principal)
CPT/HCPCS: 10060; 99283

== ENCOUNTER → 2023-06-22 07:49 | Outpatient (CLI) | payer BC, SELFPAY ==
[2023-06-22 08:42] LABS: Add Manual Diff / Slide Review NO; Basophils Absolute Auto 100 /uL (0-100); Basophils Percent Auto 0.8 % (0-2); Eosinophils Absolute Auto 200 /uL (0-450); Eosinophils Percent Auto 2.8 % (2-4); Hematocrit 39.1 % (36-46); Hemoglobin 13.4 g/dL (12.0-16.0); Lymphocytes Absolute Auto 2600 /uL (1100-4500); Lymphocytes Percent Auto 41.5 % (25-40); Mean Corpuscular HGB Conc 34.2 % (30-36); Mean Corpuscular Hemoglobin 30.3 PG (26-34); Mean Corpuscular Volume 88.6 fL (80-100); Monocytes Absolute Auto 400 /uL (0-900); Monocytes Percent Auto 6.9 % (3-14); Neutrophils Absolute Auto 3100 /uL (1500-7000); Platelet Count 326 X10^3/uL (150-400); Red Blood Cell Count 4.41 X10^6/uL (4.0-5.2); Red Cell Distribution Width 13.5 % (11.6-14.8); White Blood Cell Count 6.4 X10^3/uL (4.5-11.0)
[2023-06-22 09:09] LABS: Alanine Aminotransferase 10 IU/L (<35); Albumin 4.4 g/dL (3.5-5.0); Albumin Globulin Ratio 1.4 (1.0-2.8); Alkaline Phosphatase 41 U/L (38-126); Aspartate Aminotransferase 19 IU/L (14-36); BUN Creatinine Ratio 20.2 (6-22); Bilirubin Total 0.6 mg/dL (0.2-1.3); Blood Urea Nitrogen 18 mg/dL (7-17); Calcium 9.1 mg/dL (8.4-10.2); Carbon Dioxide 26 mmol/L (22-32); Chloride 107 mmol/L (98-107); Cholesterol 251 mg/dL (140-199); Estimated Glomerular Filt Rate > 60 mL/min (>60); Globulin 3.2 g/dL (1.7-4.1); Glucose 97 mg/dL (70-100); HDL Cholesterol 56 mg/dL (40-60); HEMOLYSIS < 15 (0-50); LDL Cholesterol Calculated 166 mg/dL (<100); Potassium 4.1 mmol/L (3.4-5.1); Sodium 139 mmol/L (137-145); Total Protein 7.6 g/dL (6.3-8.2); Triglycerides 144 mg/dL (35-150)
[2023-06-22 09:26] LABS: Microalbumin Urine Random 2.3 mg/dL (0-1.6)
[2023-06-22 09:39] LABS: Thyroid Stimulating Hormone 22.8 uIU/mL (0.47-4.68)
[2023-06-22 16:08] LABS: HIV 1 & 2 Ab/Ag 4th Gen Combo NEGATIVE (NEGATIVE); Hep C Virus Ab w/Reflex Quant NEGATIVE s/c (NEGATIVE)
[2023-06-22 17:09] LABS: Creatinine Urine Random 479.6 mg/dL; Microalbumi Creatinin Ratio Ur 4.7 ug/mg CR (<30)
== END ==
PROVIDERS: PCP Nurse Practitioner; Referring Provider Nurse Practitioner; Visit Provider Nurse Practitioner
DX: Z00.00 Encounter for general adult medical examination without abnormal findings (principal); Z11.59 Encounter for screening for other viral diseases; Z11.4 Encounter for screening for human immunodeficiency virus [HIV]
CPT/HCPCS: 36415; 80053; 80061; 82043; 82570; 84443; 85025; 86803; 87389

== ENCOUNTER → 2023-10-28 13:14 | Outpatient (CLI) | payer BC, SELFPAY ==
[2023-10-28 14:21] LABS: Thyroid Stimulating Hormone 5.36 uIU/mL (0.47-4.68)
== END ==
PROVIDERS: PCP Nurse Practitioner; Referring Provider Nurse Practitioner; Visit Provider Nurse Practitioner
DX: E03.9 Hypothyroidism, unspecified (principal)
CPT/HCPCS: 36415; 84443

== ENCOUNTER → 2024-02-09 15:09 | Outpatient (CLI) | payer BC, SELFPAY ==
[2024-02-09 17:15] LABS: Free T3, Triiodothyronine Free 3.35 pg/mL (2.77-5.27); Free T4, Direct Thyroxine 0.75 ng/dL (0.78-2.19)
[2024-02-09 17:29] LABS: Thyroid Stimulating Hormone 4.26 uIU/mL (0.47-4.68)
== END ==
PROVIDERS: PCP Nurse Practitioner; Referring Provider Nurse Practitioner; Visit Provider Nurse Practitioner
DX: E03.9 Hypothyroidism, unspecified (principal)
CPT/HCPCS: 36415; 84439; 84443; 84481

== ENCOUNTER → 2024-05-12 07:00 | Outpatient (CLI) | payer OTHER, SELFPAY ==
[2024-05-12 09:24] LABS: Add Manual Diff / Slide Review NO; Basophils Absolute Auto 0 /uL (0-100); Basophils Percent Auto 0.3 % (0-2); Eosinophils Absolute Auto 200 /uL (0-450); Eosinophils Percent Auto 2.4 % (2-4); Lymphocytes Absolute Auto 2800 /uL (1100-4500); Lymphocytes Percent Auto 30.5 % (25-40); Mean Corpuscular HGB Conc 34.2 % (30-36); Mean Corpuscular Hemoglobin 30.8 PG (26-34); Mean Corpuscular Volume 89.9 fL (80-100); Monocytes Absolute Auto 700 /uL (0-900); Monocytes Percent Auto 7.4 % (3-14); Neutrophils Absolute Auto 5500 /uL (1500-7000); Neutrophils Percent Auto 59.4 % (50-75); Platelet Count 341 X10^3/uL (150-400); Red Blood Cell Count 4.23 X10^6/uL (4.0-5.2); White Blood Cell Count 9.3 X10^3/uL (4.5-11.0)
[2024-05-12 10:05] LABS: Alanine Aminotransferase 13 IU/L (<35); Albumin Globulin Ratio 1.8 (1.0-2.8); Alkaline Phosphatase 45 U/L (38-126); Aspartate Aminotransferase 26 IU/L (14-36); BUN Creatinine Ratio 19.8 (6-22); Bilirubin Total 0.5 mg/dL (0.2-1.3); Blood Urea Nitrogen 16 mg/dL (7-17); Calcium 9.6 mg/dL (8.4-10.2); Carbon Dioxide 23 mmol/L (22-32); Chloride 103 mmol/L (98-107); Estimated Glomerular Filt Rate > 60 mL/min (>60); Globulin 2.8 g/dL (1.7-4.1); Glucose 75 mg/dL (70-100); HEMOLYSIS < 15 (0-50); Potassium 4.2 mmol/L (3.4-5.1); Sodium 139 mmol/L (137-145); Total Protein 7.8 g/dL (6.3-8.2)
[2024-05-12 10:16] LABS: Prolactin 6.8 ng/mL (3.0-18.6)
[2024-05-12 10:17] LABS: Follicle Stimulating Hormone 3.01 mIU/mL; Luteinizing Hormone 1.06 mIU/mL
[2024-05-12 11:19] LABS: Free T4, Direct Thyroxine 0.64 ng/dL (0.78-2.19)
[2024-05-15 20:40] LABS: Estrogen 290 pg/mL (.)
== END ==
LOC: LAB 07:02
PROVIDERS: PCP Family Medicine; Referring Provider Family Medicine; Visit Provider Family Medicine
DX: N92.6 Irregular menstruation, unspecified (principal); F32.A Depression, unspecified; E03.9 Hypothyroidism, unspecified; R45.86 Emotional lability; F41.9 Anxiety disorder, unspecified; R68.82 Decreased libido; R00.2 Palpitations
CPT/HCPCS: 36415; 80053; 82672; 83001; 83002; 84146; 84439; 84443; 85025

== ENCOUNTER → 2024-08-11 09:29 | Outpatient (CLI) | payer OTHER, SELFPAY ==
[2024-08-11 13:38] LABS: TSH w/ Reflex to FT4 0.81 uIU/mL (0.47-4.68)
== END ==
PROVIDERS: PCP Family Medicine; Referring Provider Family Medicine; Visit Provider Family Medicine
DX: E03.9 Hypothyroidism, unspecified (principal)
CPT/HCPCS: 36415; 84443

== ENCOUNTER 2024-10-27 14:30 | Outpatient (RCR) | payer OTHER, SELFPAY ==
--- NOTE | 2024-09-21 17:00 | PT.OPPOC ---
Physical, Occupational & Speech Therapy At [facility] Current Diagnoses Other chronic pain (09/23/24) Scoliosis, unspecified (09/23/24) Low back pain, unspecified (09/23/24) Other muscle spasm (09/23/24) Visit Care Team Role Provider Type Precious Montes De Oca DO Attending Provider Physician Family Provider Primary Care Provider Referring Provider Specialty: Family Practice Address: [address] [place] [address], [facility] [address], [place], [facility] Email: [email or web address] Plan Of Care PT-OP-B Current Condition Start: 09/21/24 15:22 Freq: Status: Active Protocol: Document 09/21/24 15:22 IMPROVEMENT LEADER (Rec: 09/21/24 19:14 IMPROVEMENT LEADER Laptop) Current Condition History of Current Condition Onset Date 5 years ago History of Current 5 years ago went to adult gymnastics class and did some Condition tumbling and felt stiffness in low back afterwards and has felt the inflexibility since then. 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 Earlier this year started increasing activity with [employer] and began having pain in low back especially with standing up from sitting, prolonged standing. 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 Currently resting at 2/10 but plans to go do [employer] this evening and pain usually gets up to 5-6/10 after activity not during activity. Treatment Goals Patient/Caregiver To decrease her pain and improve her functional Goals movement, improve core strength. PT-OP-T Assessment and Plan Start: 09/21/24 15:22 Freq: Status: Active Protocol: Document 09/21/24 15:22 IMPROVEMENT LEADER (Rec: 09/21/24 19:14 IMPROVEMENT LEADER Laptop) Physical Therapy Assessment Rehab Potential Rehabilitation Good Potential Evaluation Complexity Number of Personal 1-2 Factors/ Comorbidities Number of Body 3 Systems Impaired Clinical Stable Presentation at Evaluation Impairments Impairments Activity Tolerance,Functional Activities,Functional Mobility,Pain,Posture,ROM,Soft Tissue Mobility,Strength Goals 3 Impairment Pain Impairment sit<>stands Penitentiary Goal (LTG) Pt will demonstrate improved pain with x15 squats with proper form without pain. LTG Duration 12 weeks 2 Impairment ROM [employer] Solution Architect Goal (LTG) Pt will improve BLE ER by 15 degrees each to improve function. LTG Duration 12 weeks 1 Impairment Strength Impairment LLE strength Penitentiary Goal (LTG) Pt will improve LLE hip strength by 2 MMT grades to improve function LTG Duration 12 weeks Assessment Summary Assessment Pt presents with decreased B hip ROM L impairment>R, decreased B hip strength L impairment>R, decreased lumbar ROM to R, and pain with sit<>stands which limits her function. Pt will highly benefit from skilled PT intervention to address limitations and improve functional mobility. Physical Therapy Plan Frequency and Duration Frequency of 2x/Week Treatment Duration of 12 treatment (weeks) Plan of Care Start 09/21/24 Date Plan of Care End 12/14/24 Date Therapeutic Interventions Therapeutic Balance Training,Home Exercise Program,Joint Interventions Mobilizations,Manual Therapy,Neuromuscular Re-education ,Soft Tissue Mobilization,Therapeutic Activities, Therapeutic Exercises Modalities Cold Pack/Ice Massage,Hot Packs,Ultrasound Next Visit Focus/Plan Next Note Type Treatment Note Next Visit Plan assess lumbar vertebra mobility, standing B hip exercises, reassess B hip ER/IR Plan of Care Dates Plan of Care Start Date 09/21/24 Plan of Care End Date 12/14/24 Electronically Signed by: Kisha Irene, PT 09/28/24 9724 If you are in agreement with this Plan of Care, please return a signed and dated copy. I have reviewed this Plan of Care and certify that the skilled therapy services above are required to meet the patient?s needs. Physician Signature Date Printed Name and Credentials Clinical Instructor Signature Printed Name and Credentials
--- NOTE | 2024-09-21 17:00 | PT.OIE ---
Current Diagnoses Other chronic pain (09/23/24) Scoliosis, unspecified (09/23/24) Low back pain, unspecified (09/23/24) Other muscle spasm (09/23/24) Past Medical History (Last Updated 04/11/24 @ 14:24 by Precious Montes De Oca DO) Benign teratoma of ovary Depression Dermoid cyst of both ovaries Hypothyroidism Irregular menstrual cycle Right lower quadrant pain Skin rash Teratoma of ovary Vaginal delivery (2011) Vaginal delivery (2013) Past Surgical History (Last Updated 04/11/24 @ 14:24 by Precious Montes De Oca DO) History of ovarian cystectomy (02/02/16) History of right salpingo-oophorectomy (02/02/16) History of tonsillectomy Status post laparotomy (02/02/16) Status post ovarian cystectomy Visit Care Team Role Provider Type Precious Montes De Oca DO Attending Provider Physician Family Provider Primary Care Provider Referring Provider Specialty: Family Practice Address: [address] [place] [address], [address], [facility] Email: [email or web address] Physical Therapy Initial Evaluation PT-OP-A Visit Information Start: 09/21/24 15:22 Freq: Status: Active Protocol: Document 09/21/24 15:22 SALES EXEC (Rec: 09/21/24 19:14 SALES EXEC Laptop) Out-Patient Physical Therapy Visit Information Visit Information Visit Type Initial Evaluation Visit Note Goes by Pamela Visit Start Time 15:20 Visit Stop Time 16:07 Visit Number 1 Number of AERIAL PHOTOGRAPHER Visits 0 Evaluation Information Evaluation Date 09/21/24 Precautions Precautions N/A PT-OP-B Current Condition Start: 09/21/24 15:22 Freq: Status: Active Protocol: Document 09/21/24 15:22 SALES EXEC (Rec: 09/21/24 19:14 SALES EXEC Laptop) Current Condition History of Current Condition Onset Date 5 years ago History of Current 5 years ago went to adult gymnastics class and did some Condition tumbling and felt stiffness in low back afterwards and has felt the inflexibility since then. 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 Earlier this year started increasing activity with [employer] and began having pain in low back especially with standing up from sitting, prolonged standing. 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 Treatment Goals Patient/Caregiver To decrease her pain and improve her functional Goals movement, improve core strength. PT-OP-C Subjective Start: 09/21/24 15:22 Freq: Status: Active Protocol: Document 09/21/24 15:22 SALES EXEC (Rec: 09/21/24 19:14 SALES EXEC Laptop) Patient Questionnaires Oswestry Low Back Index Oswestry Score 8% PT-OP-F Manual Assessment Start: 09/21/24 15:22 Freq: Status: Active Protocol: Document 09/21/24 15:22 SALES EXEC (Rec: 09/21/24 19:14 SALES EXEC Laptop) Manual Assessments Other Manual Assessments Other Manual Decreased soft tissue mobility to L piriformis with TTP Assessments PT-OP-J Posture/Palpation/Skin Start: 09/21/24 15:22 Freq: Status: Active Protocol: Document 09/21/24 15:22 SALES EXEC (Rec: 09/21/24 19:14 SALES EXEC Laptop) Posture Evaluation Comments Posture Comments Standing: L shoulder slightly superior than R, forward head posture, decreased lumbar lordosis PT-OP-K Range of Motion Start: 09/21/24 15:22 Freq: Status: Active Protocol: Document 09/21/24 15:22 SALES EXEC (Rec: 09/21/24 19:14 SALES EXEC Laptop) Lumbar Spine Range of Motion Lumbar Spine Percentage Testing Position Standing Flexion 100 Extension 100 Rotation Left 90 Rotation Right 80 Lateral Flexion Left 100 Lateral Flexion 80 Right ROM Limitations Pain Hip Goniometric Range of Motion Hip ROM Limitations Hip ROM Limitations Soft Tissue Tightness Comments R heel to butt 6 L heel to butt 8 R 90/90 160 degrees L 90/90 150 degrees PT-OP-M Strength Start: 09/21/24 15:22 Freq: Status: Active Protocol: Document 09/21/24 15:22 SALES EXEC (Rec: 09/21/24 19:14 SALES EXEC Laptop) Hip Strength Hip Manual Muscle Testing L Flexion (L2) 4 Good Extension (S1) 4- Good- Abduction 4 Good R Flexion (L2) 4+ Good+ Extension (S1) 4 Good Abduction 4+ Good+ Comments pain on L side with hip flex Knee Strength Knee Manual Muscle Testing L Flexion (S2) 4 Good Extension (L3) 5 Normal R Flexion (S2) 4 Good Extension (L3) 5 Normal Ankle/Foot Strength Ankle and Foot Manual Muscle Testing L Dorsiflexion (L4) 5 Normal R Dorsiflexion (L4) 5 Normal PT-OP-Q Treatments Start: 09/21/24 15:22 Freq: Status: Active Protocol: Document 09/21/24 15:22 SALES EXEC (Rec: 09/21/24 19:14 SALES EXEC Laptop) Therapeutic Exercises Sitting Exercises HS Curls Side bilateral Resistance L2 TB Reps/Minutes 10x2 Comments Added to HEP Piriformis Stretch Side bilateral Reps/Minutes 60s x2 each Comments added to HEP Standing Exercises Quad Stretch Side bilateral Reps/Minutes 60s x2 Comments Added to HEP PT-OP-T Assessment and Plan Start: 09/21/24 15:22 Freq: Status: Active Protocol: Document 09/21/24 15:22 SALES EXEC (Rec: 09/21/24 19:14 SALES EXEC Laptop) Physical Therapy Assessment Rehab Potential Rehabilitation Good Potential Evaluation Complexity Number of Personal 1-2 Factors/ Comorbidities Number of Body 3 Systems Impaired Clinical Stable Presentation at Evaluation Impairments Impairments Activity Tolerance,Functional Activities,Functional Mobility,Pain,Posture,ROM,Soft Tissue Mobility,Strength Goals 3 Impairment Pain Impairment sit<>stands Skilled Nursing Goal (LTG) Pt will demonstrate improved pain with x15 squats with proper form without pain. LTG Duration 12 weeks 2 Impairment ROM Skilled Nursing Goal (LTG) Pt will improve BLE ER by 15 degrees each to improve function. LTG Duration 12 weeks 1 Impairment Strength Impairment LLE strength Toolroom Helper Goal (LTG) Pt will improve LLE hip strength by 2 MMT grades to improve function LTG Duration 12 weeks Assessment Summary Assessment Pt presents with decreased B hip ROM L impairment>R, decreased B hip strength L impairment>R, decreased lumbar ROM to R, and pain with sit<>stands which limits her function. Pt will highly benefit from skilled PT intervention to address limitations and improve functional mobility. Physical Therapy Plan Frequency and Duration Frequency of 2x/Week Treatment Duration of 12 treatment (weeks) Plan of Care Start 09/21/24 Plan of Care End 12/14/24 Date Therapeutic Interventions Therapeutic Balance Training,Home Exercise Program,Joint Interventions Mobilizations,Manual Therapy,Neuromuscular Re-education ,Soft Tissue Mobilization,Therapeutic Activities, Therapeutic Exercises Modalities Cold Pack/Ice Massage,Hot Packs,Ultrasound Next Visit Focus/Plan Next Note Type Treatment Note Next Visit Plan assess lumbar vertebra mobility, standing B hip exercises, reassess B hip ER/IR
--- NOTE | 2024-09-23 18:00 | PT.OTN ---
Current Diagnoses Other chronic pain (09/23/24) Scoliosis, unspecified (09/23/24) Low back pain, unspecified (09/23/24) Other muscle spasm (09/23/24) Physical Therapy Treatment Note PT-OP-A Visit Information Start: 09/21/24 15:22 Freq: Status: Active Protocol: Document 09/23/24 15:18 ONCOLOGY CONSULTANT (Rec: 09/28/24 21:43 ONCOLOGY CONSULTANT Laptop) Out-Patient Physical Therapy Visit Information Visit Information Visit Type Treatment Note Visit Start Time 15:18 Visit Stop Time 16:03 Visit Number 2 Number of GEODETIC SURVEY DIRECTOR Visits 0 Evaluation Information Evaluation Date 09/21/24 Precautions Precautions N/A PT-OP-B Current Condition Start: 09/21/24 15:22 Freq: Status: Active Protocol: Document 09/21/24 15:22 ONCOLOGY CONSULTANT (Rec: 09/21/24 19:14 ONCOLOGY CONSULTANT Laptop) Current Condition History of Current Condition Onset Date 5 years ago History of Current 5 years ago went to adult gymnastics class and did some Condition tumbling and felt stiffness in low back afterwards and has felt the inflexibility since then. 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 Earlier this year started increasing activity with [employer] and began having pain in low back especially with standing up from sitting, prolonged standing. 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 Treatment Goals Patient/Caregiver To decrease her pain and improve her functional Goals movement, improve core strength. PT-OP-C Subjective Start: 09/21/24 15:22 Freq: Status: Active Protocol: Document 09/23/24 15:18 ONCOLOGY CONSULTANT (Rec: 09/28/24 21:43 ONCOLOGY CONSULTANT Laptop) OP-PT Subjective Patient Comments Patient Comments Pt reports current low back pain at 1/10, reports HEP is going well without questions PT-OP-F Manual Assessment Start: 09/21/24 15:22 Freq: Status: Active Protocol: Document 09/21/24 15:22 ONCOLOGY CONSULTANT (Rec: 09/21/24 19:14 ONCOLOGY CONSULTANT Laptop) Manual Assessments Other Manual Assessments Other Manual Decreased soft tissue mobility to L piriformis with TTP Assessments PT-OP-J Posture/Palpation/Skin Start: 09/21/24 15:22 Freq: Status: Active Protocol: Document 09/21/24 15:22 ONCOLOGY CONSULTANT (Rec: 09/21/24 19:14 ONCOLOGY CONSULTANT Laptop) Posture Evaluation Comments Posture Comments Standing: L shoulder slightly superior than R, forward head posture, decreased lumbar lordosis PT-OP-K Range of Motion Start: 09/21/24 15:22 Freq: Status: Active Protocol: Document 09/21/24 15:22 ONCOLOGY CONSULTANT (Rec: 09/21/24 19:14 ONCOLOGY CONSULTANT Laptop) Lumbar Spine Range of Motion Lumbar Spine Percentage Testing Position Standing Flexion 100 Extension 100 Rotation Left 90 Rotation Right 80 Lateral Flexion Left 100 Lateral Flexion 80 Right ROM Limitations Pain Hip Goniometric Range of Motion Hip ROM Limitations Hip ROM Limitations Soft Tissue Tightness Comments R heel to butt 6 L heel to butt 8 R 90/90 160 degrees L 90/90 150 degrees PT-OP-M Strength Start: 09/21/24 15:22 Freq: Status: Active Protocol: Document 09/21/24 15:22 ONCOLOGY CONSULTANT (Rec: 09/21/24 19:14 ONCOLOGY CONSULTANT Laptop) Hip Strength Hip Manual Muscle Testing L Flexion (L2) 4 Good Extension (S1) 4- Good- Abduction 4 Good R Flexion (L2) 4+ Good+ Extension (S1) 4 Good Abduction 4+ Good+ Comments pain on L side with hip flex Knee Strength Knee Manual Muscle Testing L Flexion (S2) 4 Good Extension (L3) 5 Normal R Flexion (S2) 4 Good Extension (L3) 5 Normal Ankle/Foot Strength Ankle and Foot Manual Muscle Testing L Dorsiflexion (L4) 5 Normal R Dorsiflexion (L4) 5 Normal PT-OP-Q Treatments Start: 09/21/24 15:22 Freq: Status: Active Protocol: Document 09/23/24 15:18 ONCOLOGY CONSULTANT (Rec: 09/28/24 21:43 ONCOLOGY CONSULTANT Laptop) Cardio Equipment Elliptical Duration (Minutes) 5 Resistance L3 Other for B hip/lumbar warm up Therapeutic Exercises Supine Exercises PPT Supine Exercise Name 1. PPT with hold 2. PPT with LE fall out/ER 3. PPT with alt LE ext Side bilateral Reps/Minutes x10 each Comments Progressed HEP to alt LE ext Prone Exercises Thread the Needle Side bilateral Reps/Minutes x10 each side Comments no VC, good form Cat Cow Reps/Minutes x10 Comments no VC, good form Standing Exercises Hip Ext Side bilateral Reps/Minutes 10x2 Comments Cues for without UE support Hip Abd Side bilateral Reps/Minutes 10x2 Comments Cues for without UE support March Side bilateral Reps/Minutes 10x2 Comments Cues for without UE support Hip ER Stretch Standing Exercise Modified pigeon stretch on tall table/bed Name Side bilateral Reps/Minutes 60sx2 each side Comments Updated seated hip ER stretch to pigeon stretch for increased hip comfort Manual Therapy Treatment Consent Patient gave verbal Yes consent for manual treatment Joint Mobilizations Lumbar Joint L2, L4 Direction post>ant Grade III Body Position Prone Reps/Duration x10 each Comments hypomobility felt on palpation prior to mobs restricting lumbar ext PT-OP-T Assessment and Plan Start: 09/21/24 15:22 Freq: Status: Active Protocol: Document 09/23/24 15:18 ONCOLOGY CONSULTANT (Rec: 09/28/24 21:43 ONCOLOGY CONSULTANT Laptop) Physical Therapy Assessment Impairments Impairments Activity Tolerance,Functional Activities,Functional Mobility,Pain,Posture,ROM,Soft Tissue Mobility,Strength Goals 3 Impairment Pain Impairment sit<>stands Emergency Telecommunications Dispatcher Goal (LTG) Pt will demonstrate improved pain with x15 squats with proper form without pain. LTG Duration 12 weeks 2 Impairment ROM Custodial Goal (LTG) Pt will improve BLE ER by 15 degrees each to improve function. LTG Duration 12 weeks 1 Impairment Strength Impairment LLE strength Custodial Goal (LTG) Pt will improve LLE hip strength by 2 MMT grades to improve function LTG Duration 12 weeks Assessment Summary Assessment Pt tolerated all hip exercises and stretches well, core strengthening, and PA mobs to lumbar spine for increased ext. Continue working on core strengthening, hip strengthening, and balance. Physical Therapy Plan Frequency and Duration Frequency of 2x/Week Treatment Duration of 12 treatment (weeks) Plan of Care Start 09/21/24 Date Plan of Care End 12/14/24 Date Therapeutic Interventions Therapeutic Balance Training,Home Exercise Program,Joint Interventions Mobilizations,Manual Therapy,Neuromuscular Re-education ,Soft Tissue Mobilization,Therapeutic Activities, Therapeutic Exercises Modalities Cold Pack/Ice Massage,Hot Packs,Ultrasound Next Visit Focus/Plan Next Note Type Treatment Note Next Visit Plan PAs to lumbar spine, squats, anti rotations
--- NOTE | 2024-10-05 17:38 | PT.OTN ---
Current Diagnoses Other chronic pain (10/05/24) Scoliosis, unspecified (10/05/24) Low back pain, unspecified (10/05/24) Other muscle spasm (10/05/24) Physical Therapy Treatment Note PT-OP-A Visit Information Start: 09/21/24 15:22 Freq: Status: Active Protocol: Document 10/05/24 16:18 FIXED ASSETS ACCOUNTANT (Rec: 10/05/24 17:38 FIXED ASSETS ACCOUNTANT Laptop) Out-Patient Physical Therapy Visit Information Visit Information Visit Type Treatment Note Visit Start Time 16:18 Visit Stop Time 17:17 Visit Number 3 Number of BASKETBALL SCOUT Visits 0 Evaluation Information Evaluation Date 09/21/24 Precautions Precautions N/A PT-OP-B Current Condition Start: 09/21/24 15:22 Freq: Status: Active Protocol: Document 09/21/24 15:22 FIXED ASSETS ACCOUNTANT (Rec: 09/21/24 19:14 FIXED ASSETS ACCOUNTANT Laptop) Current Condition History of Current Condition Onset Date 5 years ago History of Current 5 years ago went to adult gymnastics class and did some Condition tumbling and felt stiffness in low back afterwards and has felt the inflexibility since then. 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 Earlier this year started increasing activity with [employer] and began having pain in low back especially with standing up from sitting, prolonged standing. 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 Currently resting at 2/10 but plans to go do ju[place] this evening and pain usually gets up to 5-6/10 after activity not during activity. Treatment Goals Patient/Caregiver To decrease her pain and improve her functional Goals movement, improve core strength. 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 Patient Reported Improving Progress PT-OP-F Manual Assessment Start: 09/21/24 15:22 Freq: Status: Active Protocol: Document 09/21/24 15:22 FIXED ASSETS ACCOUNTANT (Rec: 09/21/24 19:14 FIXED ASSETS ACCOUNTANT Laptop) Manual Assessments Other Manual Assessments Other Manual Decreased soft tissue mobility to L piriformis with TTP Assessments PT-OP-J Posture/Palpation/Skin Start: 09/21/24 15:22 Freq: Status: Active Protocol: Document 09/21/24 15:22 FIXED ASSETS ACCOUNTANT (Rec: 09/21/24 19:14 FIXED ASSETS ACCOUNTANT Laptop) Posture Evaluation Comments Posture Comments Standing: L shoulder slightly superior than R, forward head posture, decreased lumbar lordosis PT-OP-K Range of Motion Start: 09/21/24 15:22 Freq: Status: Active Protocol: Document 09/21/24 15:22 FIXED ASSETS ACCOUNTANT (Rec: 09/21/24 19:14 FIXED ASSETS ACCOUNTANT Laptop) Lumbar Spine Range of Motion Lumbar Spine Percentage Testing Position Standing Flexion 100 Extension 100 Rotation Left 90 Rotation Right 80 Lateral Flexion Left 100 Lateral Flexion 80 Right ROM Limitations Pain Hip Goniometric Range of Motion Hip ROM Limitations Hip ROM Limitations Soft Tissue Tightness Comments R heel to butt 6 L heel to butt 8 R 90/90 160 degrees L 90/90 150 degrees PT-OP-M Strength Start: 09/21/24 15:22 Freq: Status: Active Protocol: Document 09/21/24 15:22 FIXED ASSETS ACCOUNTANT (Rec: 09/21/24 19:14 FIXED ASSETS ACCOUNTANT Laptop) Hip Strength Hip Manual Muscle Testing L Flexion (L2) 4 Good Extension (S1) 4- Good- Abduction 4 Good R Flexion (L2) 4+ Good+ Extension (S1) 4 Good Abduction 4+ Good+ Comments pain on L side with hip flex Knee Strength Knee Manual Muscle Testing L Flexion (S2) 4 Good Extension (L3) 5 Normal R Flexion (S2) 4 Good Extension (L3) 5 Normal Ankle/Foot Strength Ankle and Foot Manual Muscle Testing L Dorsiflexion (L4) 5 Normal R Dorsiflexion (L4) 5 Normal PT-OP-Q Treatments Start: 09/21/24 15:22 Freq: Status: Active Protocol: Document 10/05/24 16:18 FIXED ASSETS ACCOUNTANT (Rec: 10/05/24 17:38 FIXED ASSETS ACCOUNTANT Laptop) Gym Equipment Shuttle Recovery BLE Details Double leg squats with L2 TB around knees Resistance 1. 75# 2. 100# 3. 125# Shuttle Recovery Stable Platform Therapeutic Exercises Supine Exercises PPT Supine Exercise Name 1. LE fall out/ER 2. alt LE ext float 3. SLR+hip abd with opp float Side bilateral Reps/Minutes x10 each Comments Progressed HEP to SLR and hip abd Sitting Exercises Butterfly Stretch Sitting Exercise Against wall Name Side bilateral Reps/Minutes 1 min Comments Added to HEP Standing Exercises Palloff Press Standing Exercise Stir the pot CW and CCW Name Side bilateral Resistance L4 TB Reps/Minutes 10x2 each direction each side Comments Added to HEP Hip Ext Standing Exercise on foam Name Side bilateral Reps/Minutes x10 Comments progressed HEP to standing on foam Hip Abd Standing Exercise on foam Name Side bilateral Reps/Minutes x10 Comments progressed HEP to standing on foam March Standing Exercise on foam Name Side bilateral Reps/Minutes 10x2 Comments progressed HEP to standing on foam Manual Therapy Treatment Consent Patient gave verbal Yes consent for manual treatment Soft Tissue Mobilization Hip ER Stretch Body Location B hip capsule stretch Body Position Supine Comments manual stretch hip into ER at varying degrees of hip flexion, pain free Piriformis Body Location L Mobilization Type Cross-Friction,Rolling Intensity/Depth Deep Body Position Prone Comments pain and decreased tissue mobility noted, pressure origin towards extension focus at proximal insertion PT-OP-T Assessment and Plan Start: 09/21/24 15:22 Freq: Status: Active Protocol: Document 10/05/24 16:18 FIXED ASSETS ACCOUNTANT (Rec: 10/05/24 17:38 FIXED ASSETS ACCOUNTANT Laptop) Physical Therapy Assessment Impairments Impairments Activity Tolerance,Functional Activities,Functional Mobility,Pain,Posture,ROM,Soft Tissue Mobility,Strength Goals 3 Impairment Pain Impairment sit<>stands Pairing Machine Operator Goal (LTG) Pt will demonstrate improved pain with x15 squats with proper form without pain. LTG Duration 12 weeks 2 Impairment ROM Mcfp Goal (LTG) Pt will improve BLE ER by 15 degrees each to improve function. LTG Duration 12 weeks 1 Impairment Strength Impairment LLE strength Mcfp Goal (LTG) Pt will improve LLE hip strength by 2 MMT grades to improve function LTG Duration 12 weeks Progress Towards Goals Progress Towards Progressing Toward Goals Goals Progress Comments improved pain with functional movement and improved standing tolerance Assessment Summary Assessment Pt has demonstrated improvements in core strength and hip strength and able to progress all HEP. Noted tightness in capsule to B hip ER, improved after manual stretch. Butterfly stretch added to HEP. Pt is progressing well but continues to require skilled PT to meet goals. Physical Therapy Plan Frequency and Duration Frequency of 2x/Week Treatment Duration of 12 treatment (weeks) Plan of Care Start 09/21/24 Date Plan of Care End 12/14/24 Date Therapeutic Interventions Therapeutic Balance Training,Home Exercise Program,Joint Interventions Mobilizations,Manual Therapy,Neuromuscular Re-education ,Soft Tissue Mobilization,Therapeutic Activities, Therapeutic Exercises Modalities Cold Pack/Ice Massage,Hot Packs,Ultrasound Next Visit Focus/Plan Next Note Type Treatment Note Next Visit Plan squat form, quadruped UE/LE lifts, STM to L piriformis as needed
--- NOTE | 2024-10-07 14:27 | PT.OTN ---
Current Diagnoses Other chronic pain (10/07/24) Scoliosis, unspecified (10/07/24) Low back pain, unspecified (10/07/24) Other muscle spasm (10/07/24) Physical Therapy Treatment Note PT-OP-A Visit Information Start: 09/21/24 15:22 Freq: Status: Active Protocol: Document 10/07/24 13:49 SP (Rec: 10/07/24 14:43 SP [id number]) Out-Patient Physical Therapy Visit Information Visit Information Visit Type Treatment Note Visit Start Time 13:49 Visit Stop Time 14:27 Visit Number 2 Number of PACKAGING SALES Visits 1 Evaluation Information Evaluation Date 09/21/24 Precautions Precautions N/A PT-OP-B Current Condition Start: 09/21/24 15:22 Freq: Status: Active Protocol: Document 09/21/24 15:22 METAL CUT OFF SAW TENDER (Rec: 09/21/24 19:14 METAL CUT OFF SAW TENDER Laptop) Current Condition History of Current Condition Onset Date 5 years ago History of Current 5 years ago went to adult gymnastics class and did some Condition tumbling and felt stiffness in low back afterwards and has felt the inflexibility since then. 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 Earlier this year started increasing activity with [employer] and began having pain in low back especially with standing up from sitting, prolonged standing. 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 Treatment Goals Patient/Caregiver To decrease her pain and improve her functional Goals movement, improve core strength. PT-OP-C Subjective Start: 09/21/24 15:22 Freq: Status: Active Protocol: Document 10/07/24 13:49 SP (Rec: 10/07/24 14:43 SP [id number]) OP-PT Subjective Patient Comments Patient Comments Pt reports felt ok after last tx. 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 PT-OP-F Manual Assessment Start: 09/21/24 15:22 Freq: Status: Active Protocol: Document 09/21/24 15:22 METAL CUT OFF SAW TENDER (Rec: 09/21/24 19:14 METAL CUT OFF SAW TENDER Laptop) Manual Assessments Other Manual Assessments Other Manual Decreased soft tissue mobility to L piriformis with TTP Assessments PT-OP-J Posture/Palpation/Skin Start: 09/21/24 15:22 Freq: Status: Active Protocol: Document 09/21/24 15:22 METAL CUT OFF SAW TENDER (Rec: 09/21/24 19:14 METAL CUT OFF SAW TENDER Laptop) Posture Evaluation Comments Posture Comments Standing: L shoulder slightly superior than R, forward head posture, decreased lumbar lordosis PT-OP-K Range of Motion Start: 09/21/24 15:22 Freq: Status: Active Protocol: Document 09/21/24 15:22 METAL CUT OFF SAW TENDER (Rec: 09/21/24 19:14 METAL CUT OFF SAW TENDER Laptop) Lumbar Spine Range of Motion Lumbar Spine Percentage Testing Position Standing Flexion 100 Extension 100 Rotation Left 90 Rotation Right 80 Lateral Flexion Left 100 Lateral Flexion 80 Right ROM Limitations Pain Hip Goniometric Range of Motion Hip ROM Limitations Hip ROM Limitations Soft Tissue Tightness Comments R heel to butt 6 L heel to butt 8 R 90/90 160 degrees L 90/90 150 degrees PT-OP-M Strength Start: 09/21/24 15:22 Freq: Status: Active Protocol: Document 09/21/24 15:22 METAL CUT OFF SAW TENDER (Rec: 09/21/24 19:14 METAL CUT OFF SAW TENDER Laptop) Hip Strength Hip Manual Muscle Testing L Flexion (L2) 4 Good Extension (S1) 4- Good- Abduction 4 Good R Flexion (L2) 4+ Good+ Extension (S1) 4 Good Abduction 4+ Good+ Comments pain on L side with hip flex Knee Strength Knee Manual Muscle Testing L Flexion (S2) 4 Good Extension (L3) 5 Normal R Flexion (S2) 4 Good Extension (L3) 5 Normal Ankle/Foot Strength Ankle and Foot Manual Muscle Testing L Dorsiflexion (L4) 5 Normal R Dorsiflexion (L4) 5 Normal PT-OP-Q Treatments Start: 09/21/24 15:22 Freq: Status: Active Protocol: Document 10/07/24 13:49 SP (Rec: 10/07/24 14:43 SP [id number]) Gym Equipment Shuttle Recovery BLE Details Double leg squats with L2 TB around knees Resistance 1. 75# 2. 100# 3. 125# Shuttle Recovery Stable Platform Reps/Time 1. 15, 2. 20, 3. 15 reps Therapeutic Exercises Prone Exercises Thread the Needle Prone Exercise Name Quadruped Side bilateral Reps/Minutes 10 Sh x3 reps each side Comments no VC, good form Sitting Exercises Tball Sitting Exercise TA: June, LAQ- added to HEP at work-declined HO Name Side bilateral Reps/Minutes 10 reps each LE Comments good form, and core enagement reported squat Sitting Exercise added to HEP at work-declined HO Name Resistance AROM> TB #2 teal around knees without then 10# DB Equipment Used front mirror, chair behind Reps/Minutes 10 reps each Comments cues knees with and behind toes- good response pnfree Butterfly Stretch Sitting Exercise Reviewed Name Side bilateral Equipment Used Back against wall Reps/Minutes 1 min Piriformis Stretch Sitting Exercise Reviewed Name Side bilateral Reps/Minutes 60s x2 each Comments trunk flexion- good hip stretch Standing Exercises Lunges Standing Exercise trialed in PT- added to HEP at work-declined HO Name Side bilateral Resistance AROM Equipment Used front mirror Reps/Minutes 10 reps each side Comments cued knee alignment Palloff Press Standing Exercise 1. press out 2. Stir the pot CW and CCW Name Side bilateral Resistance L4 TB doubled Reps/Minutes [id number] direction each side Comments reviewed athletic stance, neutral pelvis Quad Stretch Side bilateral Reps/Minutes 60s x2 Comments Added to HEP Other Exercises Self STMs Other Exercise Name Discussed self STMs with ball wall to LS: Es, gluts for decreased tension Equipment Used tennis ball wall Comments not performed but discussed can incorporate at work. quadruped Other Exercise Name 1. Child's Pose Fwd & SB 2. Bird Dog Side bilateral Reps/Minutes 1. 30 sec each position 2. 20 reps alternating Comments good response 2. cued R hip toward floor level pelvis PT-OP-T Assessment and Plan Start: 09/21/24 15:22 Freq: Status: Active Protocol: Document 10/07/24 13:49 SP (Rec: 10/07/24 14:43 SP [id number]) Physical Therapy Assessment Goals 3 Impairment Pain Impairment sit<>stands Mcfp Goal (LTG) Pt will demonstrate improved pain with x15 squats with proper form without pain. 10/07/24: GOAL MET: no pain with resisted squat willis 10# DB held at shld height, cues for pelvic alignment. LTG Duration 12 weeks GOAL MET 10/07/24 2 Impairment ROM Second Vp Hr Assessment Goal (LTG) Pt will improve BLE ER by 15 degrees each to improve function. LTG Duration 12 weeks 1 Impairment Strength Impairment LLE strength Mcfp Goal (LTG) Pt will improve LLE hip strength by 2 MMT grades to improve function 10/07/24: progressing HEP: squat with wt, lunges, Seated Tball march/LAQ, Paloff press, Bird dog, Resisted hip standing and stretching program LTG Duration 12 weeks progressing 10/07/24 Assessment Summary Assessment Pt good feedback response to increased reps and sets of continued previous ther ex instructed. Progressed squat form with increased resistance, stationary lunges with no resistance, cues for knee, back and trunk and pelvic alignment to allow good body mechanics for picking up items at work without knee or back over recruitment with good corrections and no report of pain just muscle tiring. Incorporated uneven surface seated LE mobility for core strengthening and yoga positions for flexibility and core stabilization with education on how can incorporate into her work shift for back comfort. Physical Therapy Plan Frequency and Duration Frequency of 2x/Week Treatment Duration of 12 treatment (weeks) Plan of Care Start 09/21/24 Date Plan of Care End 12/14/24 Date Therapeutic Interventions Therapeutic Balance Training,Home Exercise Program,Joint Interventions Mobilizations,Manual Therapy,Neuromuscular Re-education ,Soft Tissue Mobilization,Therapeutic Activities, Therapeutic Exercises Modalities Cold Pack/Ice Massage,Hot Packs,Ultrasound Next Visit Focus/Plan Next Note Type Treatment Note Next Visit Plan Review HEP: squat with wt, lunges, Seated Tball march/ LAQ, Paloff press, Bird dog, Resisted hip standing and stretching program. Progress
--- NOTE | 2024-10-14 16:34 | PT-OP ANOTE ---
Pt cancelled 2 appts this week, no reason from schedulers given in chart. She has follow up appts in the future.
--- NOTE | 2024-10-18 17:59 | PT.OTN ---
Current Diagnoses Other chronic pain (10/18/24) Scoliosis, unspecified (10/18/24) Low back pain, unspecified (10/18/24) Other muscle spasm (10/18/24) Physical Therapy Treatment Note PT-OP-A Visit Information Start: 09/21/24 15:22 Freq: Status: Active Protocol: Document 10/18/24 16:26 VISUAL SUPERVISOR (Rec: 10/18/24 17:59 VISUAL SUPERVISOR Laptop) Out-Patient Physical Therapy Visit Information Visit Information Visit Type Progress Note Visit Start Time 16:23 Visit Stop Time 17:10 Visit Number 5 Number of FRUIT AND VEGETABLE INSPECTOR Visits 0 Evaluation Information Evaluation Date 09/21/24 Precautions Precautions N/A PT-OP-B Current Condition Start: 09/21/24 15:22 Freq: Status: Active Protocol: Document 09/21/24 15:22 VISUAL SUPERVISOR (Rec: 09/21/24 19:14 VISUAL SUPERVISOR Laptop) Current Condition History of Current Condition Onset Date 5 years ago History of Current 5 years ago went to adult gymnastics class and did some Condition tumbling and felt stiffness in low back afterwards and has felt the inflexibility since then. 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 Earlier this year started increasing activity with [employer] and began having pain in low back especially with standing up from sitting, prolonged standing. 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 Treatment Goals Patient/Caregiver To decrease her pain and improve her functional Goals movement, improve core strength. PT-OP-C Subjective Start: 09/21/24 15:22 Freq: Status: Active Protocol: Document 10/18/24 16:26 VISUAL SUPERVISOR (Rec: 10/18/24 17:59 VISUAL SUPERVISOR Laptop) OP-PT Subjective Patient Comments Patient Comments Pt reports she has been sick and resting for the past 10 days which has helped to decrease back pain and noticed improvement when returned to work back pain used to be 6-7 at night and last night was a 1/10. PT-OP-F Manual Assessment Start: 09/21/24 15:22 Freq: Status: Active Protocol: Document 09/21/24 15:22 VISUAL SUPERVISOR (Rec: 09/21/24 19:14 VISUAL SUPERVISOR Laptop) Manual Assessments Other Manual Assessments Other Manual Decreased soft tissue mobility to L piriformis with TTP Assessments PT-OP-J Posture/Palpation/Skin Start: 09/21/24 15:22 Freq: Status: Active Protocol: Document 09/21/24 15:22 VISUAL SUPERVISOR (Rec: 09/21/24 19:14 VISUAL SUPERVISOR Laptop) Posture Evaluation Comments Posture Comments Standing: L shoulder slightly superior than R, forward head posture, decreased lumbar lordosis PT-OP-K Range of Motion Start: 09/21/24 15:22 Freq: Status: Active Protocol: Document 10/18/24 16:26 VISUAL SUPERVISOR (Rec: 10/18/24 17:59 VISUAL SUPERVISOR Laptop) Lumbar Spine Range of Motion Lumbar Spine Percentage Testing Position Standing Flexion 100 Extension 100 Hip Goniometric Range of Motion Hip ROM Limitations Hip ROM Limitations Soft Tissue Tightness Comments IR: R 50 degrees, L 48 degrees ER: R 40 degrees, L 40 degrees Alex test: R 1 cm, L 2 cm PT-OP-M Strength Start: 09/21/24 15:22 Freq: Status: Active Protocol: Document 10/18/24 16:26 VISUAL SUPERVISOR (Rec: 10/18/24 17:59 VISUAL SUPERVISOR Laptop) Hip Strength Hip Manual Muscle Testing L Flexion (L2) 4+ Good+ Extension (S1) 4 Good Abduction 4+ Good+ R Flexion (L2) 4+ Good+ Extension (S1) 4+ Good+ Abduction 4+ Good+ Comments no pain Knee Strength Knee Manual Muscle Testing L Flexion (S2) 5 Normal Extension (L3) 5 Normal R Flexion (S2) 5 Normal Extension (L3) 5 Normal Ankle/Foot Strength Ankle and Foot Manual Muscle Testing L Dorsiflexion (L4) 5 Normal R Dorsiflexion (L4) 5 Normal PT-OP-Q Treatments Start: 09/21/24 15:22 Freq: Status: Active Protocol: Document 10/18/24 16:26 VISUAL SUPERVISOR (Rec: 10/18/24 17:59 VISUAL SUPERVISOR Laptop) Cardio Equipment Recumbent Elliptical (Biodex) Duration (Minutes) 5 Resistance 3 Other elliptical Therapeutic Exercises Supine Exercises HF stretch Supine Exercise Name Off bed Side bilateral Reps/Minutes 1 min each Comments Added to HEP with HO Single leg bridges Side left Reps/Minutes 10x2 Comments Added to HEP with HO Standing Exercises Hip Ext Standing Exercise stable ground with L2 TB Name Side bilateral Reps/Minutes x10 Comments progressed HEP with HO Hip Abd Standing Exercise stable ground with L2 TB Name Side bilateral Reps/Minutes x10 Comments progressed HEP with HO March Standing Exercise stable ground hip flex with L2 TB Name Side bilateral Reps/Minutes x10 Comments progressed HEP with HO PT-OP-T Assessment and Plan Start: 09/21/24 15:22 Freq: Status: Active Protocol: Document 10/18/24 16:26 VISUAL SUPERVISOR (Rec: 10/18/24 17:59 VISUAL SUPERVISOR Laptop) Physical Therapy Assessment Goals 4 Impairment Pain Impairment Pain after jiu jitsu Half-Way Goal (LTG) Goal added 10/18: Pt will reports 0/10 back pain after 3 consecutive [employer] practices. LTG Duration 12 weeks 3 Impairment Pain Impairment sit<>stands Restrike Hammer Operator Goal (LTG) Pt will demonstrate improved pain with x15 squats with proper form without pain. 10/07/24: GOAL MET: no pain with resisted squat willis 10# DB held at shld height, cues for pelvic alignment. LTG Duration 12 weeks GOAL MET 10/07/24 2 Impairment ROM Impairment B hip ER Restrike Hammer Operator Goal (LTG) Pt will improve BLE ER by 15 degrees each to improve function. Updated goal 10/18: Pt will improve B hip ER PROM to 60 degrees each in order to improve function. LTG Duration 12 weeks 1 Impairment Strength Impairment LLE strength Half-Way Goal (LTG) Pt will improve LLE hip strength by 2 MMT grades to improve function Status 10/18: Progressing, increased each by 1 MMT LTG Duration 12 weeks progressing 10/07/24 Progress Towards Goals Progress Towards Progressing Toward Goals Goals Assessment Summary Assessment Pt demonstrates progress towards goals as seen with self reported improved pain in back during 12 hour shift, from -10/27 prior to PT to current 04/29, progress in LLE strength as seen with improved MMT by 1 score, and met sit<>stand x15 without pain goal at last session. Hip ROM goal updated to higher end of normal at 60 degrees each and added a pain goal for improved functional mobility to return to [employer] sport. Pt is progressing but continues to require skilled PT to reach goals. Progressed standing hip exercises with L2 TB and added single leg bridging to address L hip ext weakness and alex test stretch to address slight B hip flexor tightness to HEP with HO. Physical Therapy Plan Frequency and Duration Frequency of 2x/Week Treatment Duration of 12 treatment (weeks) Plan of Care Start 09/21/24 Date Plan of Care End 12/14/24 Date Therapeutic Interventions Therapeutic Balance Training,Home Exercise Program,Joint Interventions Mobilizations,Manual Therapy,Neuromuscular Re-education ,Soft Tissue Mobilization,Therapeutic Activities, Therapeutic Exercises Modalities Cold Pack/Ice Massage,Hot Packs,Ultrasound Next Visit Focus/Plan Next Note Type Treatment Note Next Visit Plan Review HEP: squat with wt, lunges, Seated June/ , Paloff press, Bird dog, Resisted hip standing and stretching program-review new HEP resisted 3way hip.
--- NOTE | 2024-10-20 13:43 | PT.OTN ---
Current Diagnoses Other chronic pain (10/20/24) Scoliosis, unspecified (10/20/24) Low back pain, unspecified (10/20/24) Other muscle spasm (10/20/24) Physical Therapy Treatment Note PT-OP-A Visit Information Start: 09/21/24 15:22 Freq: Status: Active Protocol: Document 10/20/24 13:03 SP (Rec: 10/20/24 13:47 SP [id number]) Out-Patient Physical Therapy Visit Information Visit Information Visit Type Treatment Note Visit Start Time 13:03 Visit Stop Time 13:43 Visit Number 6 Number of VIOLIN TEACHER Visits 1 Evaluation Information Evaluation Date 09/21/24 Precautions Precautions N/A PT-OP-B Current Condition Start: 09/21/24 15:22 Freq: Status: Active Protocol: Document 09/21/24 15:22 TOBACCO SIZER (Rec: 09/21/24 19:14 TOBACCO SIZER Laptop) Current Condition History of Current Condition Onset Date 5 years ago History of Current 5 years ago went to adult gymnastics class and did some Condition tumbling and felt stiffness in low back afterwards and has felt the inflexibility since then. 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 Earlier this year started increasing activity with [employer] and began having pain in low back especially with standing up from sitting, prolonged standing. 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 Currently resting at 2/10 but plans to go do [email or web address] this evening and pain usually gets up to 5-6/10 after activity not during activity. Treatment Goals Patient/Caregiver To decrease her pain and improve her functional Goals movement, improve core strength. PT-OP-C Subjective Start: 09/21/24 15:22 Freq: Status: Active Protocol: Document 10/20/24 13:03 SP (Rec: 10/20/24 13:47 SP [id number]) OP-PT Subjective Patient Comments Patient Comments PT reports had a cold and didnt' get to HEP yesterday. Otherwise exercises are HEP helping and less back pain 1-2/10 overall especially deep into her shift sit and standing. PT-OP-F Manual Assessment Start: 09/21/24 15:22 Freq: Status: Active Protocol: Document 09/21/24 15:22 TOBACCO SIZER (Rec: 09/21/24 19:14 TOBACCO SIZER Laptop) Manual Assessments Other Manual Assessments Other Manual Decreased soft tissue mobility to L piriformis with TTP Assessments PT-OP-J Posture/Palpation/Skin Start: 09/21/24 15:22 Freq: Status: Active Protocol: Document 09/21/24 15:22 TOBACCO SIZER (Rec: 09/21/24 19:14 TOBACCO SIZER Laptop) Posture Evaluation Comments Posture Comments Standing: L shoulder slightly superior than R, forward head posture, decreased lumbar lordosis PT-OP-K Range of Motion Start: 09/21/24 15:22 Freq: Status: Active Protocol: Document 10/18/24 16:26 TOBACCO SIZER (Rec: 10/18/24 17:59 TOBACCO SIZER Laptop) Lumbar Spine Range of Motion Lumbar Spine Percentage Testing Position Standing Flexion 100 Extension 100 Hip Goniometric Range of Motion Hip ROM Limitations Hip ROM Limitations Soft Tissue Tightness Comments IR: R 50 degrees, L 48 degrees ER: R 40 degrees, L 40 degrees Alex test: R 1 cm, L 2 cm PT-OP-M Strength Start: 09/21/24 15:22 Freq: Status: Active Protocol: Document 10/18/24 16:26 TOBACCO SIZER (Rec: 10/18/24 17:59 TOBACCO SIZER Laptop) Hip Strength Hip Manual Muscle Testing L Flexion (L2) 4+ Good+ Extension (S1) 4 Good Abduction 4+ Good+ R Flexion (L2) 4+ Good+ Extension (S1) 4+ Good+ Abduction 4+ Good+ Comments no pain Knee Strength Knee Manual Muscle Testing L Flexion (S2) 5 Normal Extension (L3) 5 Normal R Flexion (S2) 5 Normal Extension (L3) 5 Normal Ankle/Foot Strength Ankle and Foot Manual Muscle Testing L Dorsiflexion (L4) 5 Normal R Dorsiflexion (L4) 5 Normal PT-OP-Q Treatments Start: 09/21/24 15:22 Freq: Status: Active Protocol: Document 10/20/24 13:03 SP (Rec: 10/20/24 13:47 SP [id number]) Therapeutic Exercises Supine Exercises Tball Supine Exercise Name 1. LTR BLE hold ball 90/90 2. bridge long leg & knees bent Equipment Used 55cm ball Reps/Minutes 10 reps each Comments good core engegment HF stretch Supine Exercise Name Off bed Side bilateral Equipment Used perpendicular to EOB, opp KTC Reps/Minutes 1 min each Comments reviewed- good response Single leg bridges Supine Exercise Name reviewed Side left Reps/Minutes 10x2 Comments good form, no pain Prone Exercises Modified forearm plank Reps/Minutes 60s Comments cued chin tuck tball Prone Exercise Name Is, Ts, Ys Side bilateral Resistance AROM Equipment Used over 55cm tball, Reps/Minutes 10 reps each Comments good core engagement, WBOS on floor-good ball positioning Sidelying Exercises modified forearm side plank Side bilateral Reps/Minutes 60 sec each side Comments cued chin tuck Sitting Exercises Tball Sitting Exercise TA: March, LAQ, pelvic tilts after ROM Name Side bilateral Resistance 55cm tball Reps/Minutes 10 reps each LE Comments good form, and core enagement reported squat Sitting Exercise reviewed Name Resistance 10# DB Equipment Used chair target Reps/Minutes 10 reps each Comments good form Standing Exercises HF stretch Standing Exercise moving/leg on rolling chair, contact desk work allow Name glide back for hip fle Equipment Used LE on rolling stool/chair, contact table/post. Reps/Minutes 20 -60s Comments good response relief, ed PPT/neutral pelvis dec LB tension/strain compenate Hip Ext Standing Exercise stable ground Name Side bilateral Resistance with L2 TB Reps/Minutes x10 Comments reviewed Hip Abd Standing Exercise stable ground Name Side bilateral Resistance L2 TB, anchored in door Reps/Minutes x10 Comments reviewed Other Exercises quadruped Other Exercise Name 1. Child's Pose Fwd & SB 2. Bird Dog Side bilateral Reps/Minutes 1. 30 sec each position 55cm tball 2. 20 reps alternating Comments good response 2. cued R hip toward floor level pelvis PT-OP-T Assessment and Plan Start: 09/21/24 15:22 Freq: Status: Active Protocol: Document 10/20/24 13:03 SP (Rec: 10/20/24 13:47 SP [id number]) Physical Therapy Assessment Goals 4 Impairment Pain Impairment Pain after jiu jitsu Inspector Plating Goal (LTG) Goal added 10/18: Pt will reports 0/10 back pain after 3 consecutive jiu jitsu practices. LTG Duration 12 weeks 3 Impairment Pain Impairment sit<>stands [facility] Goal (LTG) Pt will demonstrate improved pain with x15 squats with proper form without pain. 10/07/24: GOAL MET: no pain with resisted squat willis 10# DB held at shld height, cues for pelvic alignment. LTG Duration 12 weeks GOAL MET 10/07/24 2 Impairment ROM Impairment B hip ER Inspector Plating Goal (LTG) Pt will improve BLE ER by 15 degrees each to improve function. Updated goal 10/18: Pt will improve B hip ER PROM to 60 degrees each in order to improve function. LTG Duration 12 weeks 1 Impairment Strength Impairment LLE strength [facility] Goal (LTG) Pt will improve LLE hip strength by 2 MMT grades to improve function Status 10/18: Progressing, increased each by 1 MMT LTG Duration 12 weeks progressing 10/07/24 Assessment Summary Assessment Pt good core facilitation during all ther ex, incorporated 55cm tball for support can carryover home to allow decrease pain during work shift. She reports no pain in back throughout tx, verbalized need to incorporate more core ex into her daily routine and will probably help her work day. Physical Therapy Plan Frequency and Duration Frequency of 2x/Week Treatment Duration of 12 treatment (weeks) Plan of Care Start 09/21/24 Date Plan of Care End 12/14/24 Date Therapeutic Interventions Therapeutic Balance Training,Home Exercise Program,Joint Interventions Mobilizations,Manual Therapy,Neuromuscular Re-education ,Soft Tissue Mobilization,Therapeutic Activities, Therapeutic Exercises Modalities Cold Pack/Ice Massage,Hot Packs,Ultrasound Next Visit Focus/Plan Next Note Type Treatment Note Next Visit Plan Review HEP: over tball many activities last tx (no HOS ) can get/incorporate home, squat with wt, lunges, Seated Tbjune/, Paloff press, Bird dog, Resisted hip standing and stretching program-review new HEP resisted 3way hip.
--- NOTE | 2024-10-25 13:42 | PT.OTN ---
Current Diagnoses Other chronic pain (10/25/24) Scoliosis, unspecified (10/25/24) Low back pain, unspecified (10/25/24) Other muscle spasm (10/25/24) Physical Therapy Treatment Note PT-OP-A Visit Information Start: 09/21/24 15:22 Freq: Status: Active Protocol: Document 10/25/24 13:03 SP (Rec: 10/25/24 13:48 SP [id number]) Out-Patient Physical Therapy Visit Information Visit Information Visit Type Treatment Note Visit Start Time 13:03 Visit Stop Time 13:42 Visit Number 7 Number of PHOTORESIST PRINTER Visits 2 Evaluation Information Evaluation Date 09/21/24 Precautions Precautions N/A PT-OP-B Current Condition Start: 09/21/24 15:22 Freq: Status: Active Protocol: Document 09/21/24 15:22 CARDIOVASCULAR SPECIALIST (Rec: 09/21/24 19:14 CARDIOVASCULAR SPECIALIST Laptop) Current Condition History of Current Condition Onset Date 5 years ago History of Current 5 years ago went to adult gymnastics class and did some Condition tumbling and felt stiffness in low back afterwards and has felt the inflexibility since then. 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 Earlier this year started increasing activity with [employer] and began having pain in low back especially with standing up from sitting, prolonged standing. 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 Treatment Goals Patient/Caregiver To decrease her pain and improve her functional Goals movement, improve core strength. PT-OP-C Subjective Start: 09/21/24 15:22 Freq: Status: Active Protocol: Document 10/25/24 13:03 SP (Rec: 10/25/24 13:48 SP [id number]) OP-PT Subjective Patient Comments Patient Comments Pt reports little tight/sore across low back. Has been busy garden, attending rowing club, play with kids. Hasn't returned to gym yet as hoped. Seh did fine with planks after last tx. Pt feel has many tools/HEP thinks can progress self on own returning to prior level activities. PT-OP-F Manual Assessment Start: 09/21/24 15:22 Freq: Status: Active Protocol: Document 09/21/24 15:22 CARDIOVASCULAR SPECIALIST (Rec: 09/21/24 19:14 CARDIOVASCULAR SPECIALIST Laptop) Manual Assessments Other Manual Assessments Other Manual Decreased soft tissue mobility to L piriformis with TTP Assessments PT-OP-J Posture/Palpation/Skin Start: 09/21/24 15:22 Freq: Status: Active Protocol: Document 09/21/24 15:22 CARDIOVASCULAR SPECIALIST (Rec: 09/21/24 19:14 CARDIOVASCULAR SPECIALIST Laptop) Posture Evaluation Comments Posture Comments Standing: L shoulder slightly superior than R, forward head posture, decreased lumbar lordosis PT-OP-K Range of Motion Start: 09/21/24 15:22 Freq: Status: Active Protocol: Document 10/18/24 16:26 CARDIOVASCULAR SPECIALIST (Rec: 10/18/24 17:59 CARDIOVASCULAR SPECIALIST Laptop) Lumbar Spine Range of Motion Lumbar Spine Percentage Testing Position Standing Flexion 100 Extension 100 Hip Goniometric Range of Motion Hip ROM Limitations Hip ROM Limitations Soft Tissue Tightness Comments IR: R 50 degrees, L 48 degrees ER: R 40 degrees, L 40 degrees Alex test: R 1 cm, L 2 cm PT-OP-M Strength Start: 09/21/24 15:22 Freq: Status: Active Protocol: Document 10/18/24 16:26 CARDIOVASCULAR SPECIALIST (Rec: 10/18/24 17:59 CARDIOVASCULAR SPECIALIST Laptop) Hip Strength Hip Manual Muscle Testing L Flexion (L2) 4+ Good+ Extension (S1) 4 Good Abduction 4+ Good+ R Flexion (L2) 4+ Good+ Extension (S1) 4+ Good+ Abduction 4+ Good+ Comments no pain Knee Strength Knee Manual Muscle Testing L Flexion (S2) 5 Normal Extension (L3) 5 Normal R Flexion (S2) 5 Normal Extension (L3) 5 Normal Ankle/Foot Strength Ankle and Foot Manual Muscle Testing L Dorsiflexion (L4) 5 Normal R Dorsiflexion (L4) 5 Normal PT-OP-Q Treatments Start: 09/21/24 15:22 Freq: Status: Active Protocol: Document 10/25/24 13:03 SP (Rec: 10/25/24 13:48 SP [id number]) Therapeutic Exercises Supine Exercises Bug Supine Exercise Name trialed in PT- past yoga class activity Side bilateral Reps/Minutes 20 reps each side alterting Comments good form Prone Exercises Modified forearm plank Reps/Minutes 40s Comments cued chin tuck Sidelying Exercises modified forearm side plank Sidelying Exercise forearm/feet Name Side bilateral Equipment Used tandem ft stance, top arm toward celling Reps/Minutes 37 sec L, 45 sec Comments improved CS neutral self corrections Standing Exercises Resisted Stepping Standing Exercise Fwd, Bwd, Lateral Name Side bilateral Resistance TB #2 at ankles Reps/Minutes 12 ft 2 laps each directions Comments cued trail LE ft clearance Deadlift to OH press Standing Exercise trial for performance at gym Name Side bilateral Resistance willis 5# DB>20# wt on dowel Reps/Minutes 102reps Comments cued neutral pelvis, TA, use legs lift OH if needed HF stretch Standing Exercise 1/2 kneel with OH raise Name Equipment Used on mat table Reps/Minutes 30s Comments good form Lunges Standing Exercise Reviewed Name Side bilateral Resistance Willis 5# DB Reps/Minutes 2x12 reps each side Comments good form using mirror front Other Exercises Core Sliders Other Exercise Name 1. SL clock lateral/retro 2. Mountain climbers fwd/bk/ hip flexion [place] Side bilateral Resistance AROM Reps/Minutes 1. 10 reps each direction 2. 10 reps alternating Comments good form Neuro Re-Education Treatment Balance Activities BOSU Equipment near stair rail PRN Comments on Dome: balance, minisquats On flat: Balance, minisquat, SLS PT-OP-T Assessment and Plan Start: 09/21/24 15:22 Freq: Status: Active Protocol: Document 10/25/24 13:03 SP (Rec: 10/25/24 13:48 SP [id number]) Physical Therapy Assessment Goals 4 Impairment Pain Impairment Pain after ev[employer]ina [employer] [facility] Goal (LTG) Goal added 10/18: Pt will reports 0/10 back pain after 3 consecutive evelina cuevasu practices. 10/25/24: will attend [facility] today to see if still have pain. LTG Duration 12 weeks progressing 10/25/24 3 Impairment Pain Impairment sit<>stands [facility] Home Goal (LTG) Pt will demonstrate improved pain with x15 squats with proper form without pain. 10/07/24: GOAL MET: no pain with resisted squat willis 10# DB held at shld height, cues for pelvic alignment. LTG Duration 12 weeks GOAL MET 10/07/24 2 Impairment ROM Impairment B hip ER [facility] Home Goal (LTG) Pt will improve BLE ER by 15 degrees each to improve function. Updated goal 10/18: Pt will improve B hip ER PROM to 60 degrees each in order to improve function. LTG Duration 12 weeks 1 Impairment Strength Impairment LLE strength [facility] Goal (LTG) Pt will improve LLE hip strength by 2 MMT grades to improve function Status 10/18: Progressing, increased each by 1 MMT LTG Duration 12 weeks progressing 10/07/24 Assessment Summary Assessment Pt good response to progressed to review form during self gym exercises during today's tx. Cues for elongated posture, core engagement, COG over KEATON. Good core challenge with no pain reports. Pt would benefit from 1 more appt to finalize HEP and form with gym and return to ADL activity. Physical Therapy Plan Frequency and Duration Frequency of 2x/Week Treatment Duration of 12 treatment (weeks) Plan of Care Start 09/21/24 Date Plan of Care End 12/14/24 Date Therapeutic Interventions Therapeutic Balance Training,Home Exercise Program,Joint Interventions Mobilizations,Manual Therapy,Neuromuscular Re-education ,Soft Tissue Mobilization,Therapeutic Activities, Therapeutic Exercises Modalities Cold Pack/Ice Massage,Hot Packs,Ultrasound Next Visit Focus/Plan Next Note Type Treatment Note Next Visit Plan 1 more appt finalize HEP/gym program and DC.
--- NOTE | 2024-10-27 20:16 | PT.OTN ---
Current Diagnoses Other chronic pain (10/27/24) Scoliosis, unspecified (10/27/24) Low back pain, unspecified (10/27/24) Other muscle spasm (10/27/24) Physical Therapy Treatment Note PT-OP-A Visit Information Start: 09/21/24 15:22 Freq: Status: Active Protocol: Document 10/27/24 14:39 LATHE SETUP OPERATOR (Rec: 10/27/24 15:16 LATHE SETUP OPERATOR Laptop) Out-Patient Physical Therapy Visit Information Visit Information Visit Type Discharge Summary Visit Start Time 14:35 Visit Stop Time 15:15 Visit Number 8 Number of MIDDLE SCHOOL PE TEACHER Visits 3 Evaluation Information Evaluation Date 09/21/24 PT-OP-B Current Condition Start: 09/21/24 15:22 Freq: Status: Active Protocol: Document 09/21/24 15:22 LATHE SETUP OPERATOR (Rec: 09/21/24 19:14 LATHE SETUP OPERATOR Laptop) Current Condition History of Current Condition Onset Date 5 years ago History of Current 5 years ago went to adult gymnastics class and did some Condition tumbling and felt stiffness in low back afterwards and has felt the inflexibility since then. 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 Earlier this year started increasing activity with [employer] and began having pain in low back especially with standing up from sitting, prolonged standing. 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 Treatment Goals Patient/Caregiver To decrease her pain and improve her functional Goals movement, improve core strength. 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 PT-OP-F Manual Assessment Start: 09/21/24 15:22 Freq: Status: Active Protocol: Document 09/21/24 15:22 LATHE SETUP OPERATOR (Rec: 09/21/24 19:14 LATHE SETUP OPERATOR Laptop) Manual Assessments Other Manual Assessments Other Manual Decreased soft tissue mobility to L piriformis with TTP Assessments PT-OP-J Posture/Palpation/Skin Start: 09/21/24 15:22 Freq: Status: Active Protocol: Document 09/21/24 15:22 LATHE SETUP OPERATOR (Rec: 09/21/24 19:14 LATHE SETUP OPERATOR Laptop) Posture Evaluation Comments Posture Comments Standing: L shoulder slightly superior than R, forward head posture, decreased lumbar lordosis PT-OP-K Range of Motion Start: 09/21/24 15:22 Freq: Status: Active Protocol: Document 10/18/24 16:26 LATHE SETUP OPERATOR (Rec: 10/18/24 17:59 LATHE SETUP OPERATOR Laptop) Lumbar Spine Range of Motion Lumbar Spine Percentage Testing Position Standing Flexion 100 Extension 100 Hip Goniometric Range of Motion Hip ROM Limitations Hip ROM Limitations Soft Tissue Tightness Comments IR: R 50 degrees, L 48 degrees ER: R 40 degrees, L 40 degrees Alex test: R 1 cm, L 2 cm PT-OP-M Strength Start: 09/21/24 15:22 Freq: Status: Active Protocol: Document 10/18/24 16:26 LATHE SETUP OPERATOR (Rec: 10/18/24 17:59 LATHE SETUP OPERATOR Laptop) Hip Strength Hip Manual Muscle Testing L Flexion (L2) 4+ Good+ Extension (S1) 4 Good Abduction 4+ Good+ R Flexion (L2) 4+ Good+ Extension (S1) 4+ Good+ Abduction 4+ Good+ Comments no pain Knee Strength Knee Manual Muscle Testing L Flexion (S2) 5 Normal Extension (L3) 5 Normal R Flexion (S2) 5 Normal Extension (L3) 5 Normal Ankle/Foot Strength Ankle and Foot Manual Muscle Testing L Dorsiflexion (L4) 5 Normal R Dorsiflexion (L4) 5 Normal PT-OP-Q Treatments Start: 09/21/24 15:22 Freq: Status: Active Protocol: Document 10/27/24 14:39 LATHE SETUP OPERATOR (Rec: 10/27/24 20:06 LATHE SETUP OPERATOR Laptop) Therapeutic Exercises Other Exercises Squat form Other Exercise Name discussion of importance of correct squat form at gym Equipment Used mirror for cueing Reps/Minutes 10x2 Comments VC for post WS to keep knees post to toes HEP progression Other Exercise Name Discussion with HEP for ways to continue progressing after D/C Comments core and BLE exercises on canadian ball x7, plank, side plank, bird/dog PT-OP-T Assessment and Plan Start: 09/21/24 15:22 Freq: Status: Active Protocol: Document 10/27/24 14:39 LATHE SETUP OPERATOR (Rec: 10/27/24 15:16 LATHE SETUP OPERATOR Laptop) Physical Therapy Assessment Goals 4 Impairment Pain Impairment Pain after jiu jitsu [facility] Goal (LTG) Goal added 10/18: Pt will reports 0/10 back pain after 3 consecutive jiu jitsu practices. 10/25/24: will attend Jujitsu later today to see if still have pain. 10/27: Not met, pt only attended 1 jiu jitsu session with low level pain/soreness before requesting D/C LTG Duration 12 weeks progressing 10/25/24 2 Impairment ROM Impairment B hip ER Front Desk Representative Goal (LTG) Pt will improve BLE ER by 15 degrees each to improve function. Updated goal 10/18: Pt will improve B hip ER PROM to 60 degrees each in order to improve function. 10/27: Not met, pt wanting to continue progressing with HEP with D/C from PT LTG Duration 12 weeks 1 Impairment Strength Impairment LLE strength [facility] Goal (LTG) Pt will improve LLE hip strength by 2 MMT grades to improve function Status 10/18: Progressing, increased each by 1 MMT 10/27: Not met, pt wanting to continue progressing with HEP with D/C from PT LTG Duration 12 weeks progressing 10/07/24 Assessment Summary Assessment Pt has progressed towards all goals and met 1/4 LTGs but is requesting D/C from PT as pain has improved to a consistent low level which allows her to continue progressing towards LTGs at home with HEP and at gym with guidance for safe and continued progression provided at this session with HEP handout given. D/C PT Physical Therapy Plan Therapeutic Interventions Therapeutic Balance Training,Home Exercise Program,Joint Interventions Mobilizations,Manual Therapy,Neuromuscular Re-education ,Soft Tissue Mobilization,Therapeutic Activities, Therapeutic Exercises Modalities Cold Pack/Ice Massage,Hot Packs,Ultrasound
--- NOTE | 2024-10-27 20:18 | PT.OTN ---
Current Diagnoses Other chronic pain (10/27/24) Scoliosis, unspecified (10/27/24) Low back pain, unspecified (10/27/24) Other muscle spasm (10/27/24) Physical Therapy Treatment Note PT-OP-A Visit Information Start: 09/21/24 15:22 Freq: Status: Active Protocol: Document 10/27/24 14:39 EXPLORATION ENGINEER (Rec: 10/27/24 15:16 EXPLORATION ENGINEER Laptop) Out-Patient Physical Therapy Visit Information Visit Information Visit Type Discharge Summary Visit Start Time 14:35 Visit Stop Time 15:15 Visit Number 8 Number of APPLICATION DEVELOPMENT SPECIALIST Visits 3 Evaluation Information Evaluation Date 09/21/24 PT-OP-B Current Condition Start: 09/21/24 15:22 Freq: Status: Active Protocol: Document 09/21/24 15:22 EXPLORATION ENGINEER (Rec: 09/21/24 19:14 EXPLORATION ENGINEER Laptop) Current Condition History of Current Condition Onset Date 5 years ago History of Current 5 years ago went to adult gymnastics class and did some Condition tumbling and felt stiffness in low back afterwards and has felt the inflexibility since then. 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 Earlier this year started increasing activity with [facility] and began having pain in low back especially with standing up from sitting, prolonged standing. 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 Treatment Goals Patient/Caregiver To decrease her pain and improve her functional Goals movement, improve core strength. PT-OP-C Subjective Start: 09/21/24 15:22 Freq: Status: Active Protocol: Document 10/27/24 14:39 EXPLORATION ENGINEER (Rec: 10/27/24 15:16 EXPLORATION ENGINEER Laptop) OP-PT Subjective Patient Comments Patient Comments Pt reports overall improved pain and ability to perform high level functional activities previously limited by pain such as 12 hr work shift as nurse, working out at gym, and [employer]iu [employer] with tolerable low level pain only and requesting D/C from PT as pt feels ready to maintain/continue progressing towards no pain with HEP and guidance for progression at gym. PT-OP-F Manual Assessment Start: 09/21/24 15:22 Freq: Status: Active Protocol: Document 09/21/24 15:22 EXPLORATION ENGINEER (Rec: 09/21/24 19:14 EXPLORATION ENGINEER Laptop) Manual Assessments Other Manual Assessments Other Manual Decreased soft tissue mobility to L piriformis with TTP Assessments PT-OP-J Posture/Palpation/Skin Start: 09/21/24 15:22 Freq: Status: Active Protocol: Document 09/21/24 15:22 EXPLORATION ENGINEER (Rec: 09/21/24 19:14 EXPLORATION ENGINEER Laptop) Posture Evaluation Comments Posture Comments Standing: L shoulder slightly superior than R, forward head posture, decreased lumbar lordosis PT-OP-K Range of Motion Start: 09/21/24 15:22 Freq: Status: Active Protocol: Document 10/18/24 16:26 EXPLORATION ENGINEER (Rec: 10/18/24 17:59 EXPLORATION ENGINEER Laptop) Lumbar Spine Range of Motion Lumbar Spine Percentage Testing Position Standing Flexion 100 Extension 100 Hip Goniometric Range of Motion Hip ROM Limitations Hip ROM Limitations Soft Tissue Tightness Comments IR: R 50 degrees, L 48 degrees ER: R 40 degrees, L 40 degrees Alex test: R 1 cm, L 2 cm PT-OP-M Strength Start: 09/21/24 15:22 Freq: Status: Active Protocol: Document 10/18/24 16:26 EXPLORATION ENGINEER (Rec: 10/18/24 17:59 EXPLORATION ENGINEER Laptop) Hip Strength Hip Manual Muscle Testing L Flexion (L2) 4+ Good+ Extension (S1) 4 Good Abduction 4+ Good+ R Flexion (L2) 4+ Good+ Extension (S1) 4+ Good+ Abduction 4+ Good+ Comments no pain Knee Strength Knee Manual Muscle Testing L Flexion (S2) 5 Normal Extension (L3) 5 Normal R Flexion (S2) 5 Normal Extension (L3) 5 Normal Ankle/Foot Strength Ankle and Foot Manual Muscle Testing L Dorsiflexion (L4) 5 Normal R Dorsiflexion (L4) 5 Normal PT-OP-Q Treatments Start: 09/21/24 15:22 Freq: Status: Active Protocol: Document 10/27/24 14:39 EXPLORATION ENGINEER (Rec: 10/27/24 20:06 EXPLORATION ENGINEER Laptop) Therapeutic Exercises Other Exercises Squat form Other Exercise Name discussion of importance of correct squat form at gym Equipment Used mirror for cueing Reps/Minutes 10x2 Comments VC for post WS to keep knees post to toes HEP progression Other Exercise Name Discussion with HEP for ways to continue progressing after D/C Comments core and BLE exercises on gh[place] ball x7, plank, side plank, bird/dog PT-OP-T Assessment and Plan Start: 09/21/24 15:22 Freq: Status: Active Protocol: Document 10/27/24 14:39 EXPLORATION ENGINEER (Rec: 10/27/24 15:16 EXPLORATION ENGINEER Laptop) Physical Therapy Assessment Goals 4 Impairment Pain Impairment Pain after jiu jitsu Half-Way Goal (LTG) Goal added 10/18: Pt will reports 0/10 back pain after 3 consecutive jiu jitsu practices. 10/25/24: will attend Jujitsu later today to see if still have pain. 10/27: Not met, pt only attended 1 jiu jitsu session with low level pain/soreness before requesting D/C LTG Duration 12 weeks progressing 10/25/24 2 Impairment ROM Impairment B hip ER Miller First Goal (LTG) Pt will improve BLE ER by 15 degrees each to improve function. Updated goal 10/18: Pt will improve B hip ER PROM to 60 degrees each in order to improve function. 10/27: Not met, pt wanting to continue progressing with HEP with D/C from PT LTG Duration 12 weeks 1 Impairment Strength Impairment LLE strength Half-Way Goal (LTG) Pt will improve LLE hip strength by 2 MMT grades to improve function Status 10/18: Progressing, increased each by 1 MMT 10/27: Not met, pt wanting to continue progressing with HEP with D/C from PT LTG Duration 12 weeks progressing 10/07/24 Assessment Summary Assessment Pt has progressed towards all goals and met 1/4 LTGs but is requesting D/C from PT as pain has improved to a consistent low level which allows her to continue progressing towards LTGs at home with HEP and at gym with guidance for safe and continued progression provided at this session with HEP handout given. D/C PT Physical Therapy Plan Therapeutic Interventions Therapeutic Balance Training,Home Exercise Program,Joint Interventions Mobilizations,Manual Therapy,Neuromuscular Re-education ,Soft Tissue Mobilization,Therapeutic Activities, Therapeutic Exercises Modalities Cold Pack/Ice Massage,Hot Packs,Ultrasound Discharge Physical Therapy Discharge Reasons Patient Request Discharge Comments See assessment
== END 2024-11-03 09:44 | disposition home or self-care (01) ==
LOC: PHYS 14:30
PROVIDERS: Family Provider Family Medicine; PCP Family Medicine; Referring Provider Family Medicine; Visit Provider Family Medicine
DX: M54.50 Low back pain, unspecified (principal); G89.29 Other chronic pain; M62.838 Other muscle spasm; M41.9 Scoliosis, unspecified
CPT/HCPCS: 97110; 97140; 97162